=== PATIENT | female | born 1960 | race Caucasian/White ===

== ENCOUNTER 2017-01-14 16:30 | Observation (INO) ==
--- NOTE | 2017-01-14 17:31 | Emergency Department Note ---
Disposition Clinical Impression: Acute respiratory disease Cancer of breast Qualifiers: Breast location: unspecified site of breast Patient sex: female Laterality: right Qualified Code(s): C50.911 - Malignant neoplasm of unspecified site of right female breast Disposition: Admitted As Inpatient Condition: Good SOB HPI - General Chief Complaint: ED Shortness of Breath/Dyspnea Stated Complaint: AILZE Time Seen by Provider: 01/14/17 16:35 Source: patient, family Limitations: no limitations - History of Present Illness The patient presents with shortness of breath which she has had intermittently since being diagnosed with breast cancer and 2002 however it has significantly worsened in the last 8 days. I did review her previous record with a CTA of the chest 2 days ago which did not show pulmonary embolus. Patient has had 15 pounds of weight gain. I have reviewed the previous labs. The patient does have some chest pain which rotates in different areas around the anterior chest and radiates to the back. No pleuritic aspect. Does have an exertional component chest pain and shortness of breath. She denies any pain or swelling of the lower extremities. She also has a headache which began gradually earlier today and is generalized in both pressure and stabbing and she denies any numbness or weakness of the extremities, slurred speech, facial droop or confusion. Social history: Has never smoked, no alcohol or drugs For cancer she is getting both chemotherapy and surgery - Related Data Home Medications Medication Instructions Recorded Confirmed Duloxetine HCl [Cymbalta] 60 mg PO BID 09/18/16 01/14/17 Pantoprazole Sodium [Protonix] 40 mg PO DAILY 09/18/16 01/14/17 Aspirin Enteric Coated [Aspirin EC] 81 mg PO DAILY 01/14/17 01/14/17 Cetirizine HCl [Zyrtec] 10 mg PO DAILY 01/14/17 01/14/17 Cyclobenzaprine [Flexeril] 10 mg PO TID 01/14/17 01/14/17 Hydroxyzine HCl 25 mg PO Q8H PRN 01/14/17 01/14/17 Magnesium Oxide [Mag-Ox] 400 mg PO DAILY 01/14/17 01/14/17 Nortriptyline HCl 100 mg PO HS 01/14/17 01/14/17 Pregabalin [Lyrica] 200 mg PO TID 01/14/17 01/14/17 Rivaroxaban [Xarelto] 15 mg PO BID 01/14/17 01/14/17 Previous Rx's Medication Instructions Recorded Oxycodone HCl/Acetaminophen 1 each PO Q6H PRN #40 tablet 01/05/17 [Percocet 7.5-325 mg Tablet] Ferrous Sulfate 325 mg PO DAILY #30 tablet. 01/07/17 Folic Acid 1 mg PO DAILY #30 tablet 01/07/17 Allergies Allergy/AdvReac Type Severity Reaction Status Date / Time ibuprofen AdvReac See Verified 01/14/17 17:00 Comments Review of Systems: Constitutional: No fever Vision: No blurred vision ENT: + rhinorrhea Respiratory: + cough Allergic: + allergies/sneeze : No blood in urine GI: No blood in stool Hematologic: No bruising Dermatologic: No skin rash Musculoskeletal: No pain in the extremities Neuro: No numbness of the extremities Past Medical History - Past Medical History Medical history: Reports: cancer, DVT, hypertension, pulmonary embolus, renal disease Psychiatric history: Reports: anxiety, depression [employer] history: Reports: no [employer] history - Social History Smoking Status: Never smoker Smokeless Tobacco Status: No Alcohol use: Reports: none Drug use: Reports: none Physical Exam CONSTITUTIONAL: Alert and oriented X3, well-nourished, well appearing, is tachypneic in minimal to moderate respiratory distress HEAD: Normocephalic; atraumatic. EYES: PERRL, no scleral icterus. NOSE: The nose is normal in appearance without rhinorrhea RESP: Normal chest excursion with respiration; breath sounds with coarse breath sounds bilaterally but this is minimal. Breath sounds are symmetric. No wheezing CARD: Regular rhythm, without murmurs, rub or gallop ABD: Non-distended; non-tender, soft,without rigidity, rebound or guarding SKIN: Normal for age and race; warm and dry; no apparent lesions EXTREMITIES: Pulses are 2 plus and equal times 4 extremities, no peripheral edema or calf muscle pain. NEUROLOGICAL: Patient is alert and oriented times three. Cranial nerves III- XII are intact. Sensory and motor functions are intact. Strength is 5/5 for flexion and extension in all 4 extremities. Patellar DTRS are equal and intact. Finger to nose testing is equal and normal bilaterally. - General Limitations: no limitations General appearance: alert, in no apparent distress Course Vital Signs Temperature 98.0 F 01/14/17 17:00 Pulse Rate 98 01/14/17 17:00 Respiratory Rate 22 01/14/17 17:00 Blood Pressure 149/105 01/14/17 17:00 O2 Sat by Pulse Oximetry 100 01/14/17 17:00 Temperature 97.5 F L 01/14/17 21:14 Pulse Rate 85 01/14/17 21:14 Respiratory Rate 16 01/14/17 21:14 Blood Pressure 122/89 01/14/17 21:14 O2 Sat by Pulse Oximetry 96 01/14/17 21:14 Oxygen Delivery Oxygen Delivery Room Air Shortness of Breath/Dyspnea - MDM Narrative Medical decision making narrative: The patient does have symptoms concerning for possible heart failure perhaps from the chemotherapy and I did write for labs including BNP, troponin. She did have a scan 2 days ago and I will not do any further evaluation for pulmonary embolism. EKG showing sinus tachycardia with rate of 109 and there is evidence of lateral T-wave inversion and minimal ST depression in leads V5 and V6 laterally. Results of labs are pending [address] Young who accepts the patient for admission. I did review the patient's x-ray and labs without acute abnormality. BNP is not elevated. Patient does have objective tachypnea and there are multiple possible etiologies based on the fact that she is a cancer patient receiving chemotherapy including the possibility of lung injury from the chemotherapy medications, pulmonary fibrosis, pulmonary hypertension, and this can be further evaluated as an inpatient. I feel the risk of heart failure is low however consideration for diastolic dysfunction and the other possibility would be acute coronary syndrome which I feel is unlikely. Her headache does not suggest a subarachnoid hemorrhage, meningitis or mass and she does have a normal neurologic exam so a CT scan is not this time. 1845 - Medical Records Medical records reviewed: Yes I reviewed the patient's medical records. - Lab Data Lab results reviewed: Yes I reviewed the patient's lab results. Result diagrams: 01/14/17 18:20 01/14/17 17:32 Lab Results 01/14/17 01/14/17 01/14/17 Range/Units 17:32 17:32 17:32 WBC (4.3-11.1) K/mcL RBC (3.82-4.97) M/mcL Hgb (11.5-15.4) g/dL Hct (35.3-44.9) % MCV (83.0-100.0) fL MCH (28.0-33.3) pg MCHC (31.6-35.5) g/dL RDW (11.5-14.5) % Plt Count (140-400) K/mcL MPV (9.4-12.4) fL Sodium 137 (136-145) mEq/L Potassium 3.6 (3.5-4.5) mEq/L Chloride 105 (98-109) mEq/L Carbon Dioxide 20 (19-29) mEq/L BUN 22 H (7-20) mg/dL Creatinine 0.80 (0.57-1.11) mg/dL Est GFR ( Amer) > 60 (> 60) Est GFR (Non-Af Amer) > 60 (> 60) BUN/Creatinine Ratio 28 H (6-26) Glucose 82 (70-99) mg/dL Calculated Osmolality 286 (280-300) Calcium 10.2 (8.6-10.8) mg/dL Total Bilirubin 0.3 (0.2-1.2) mg/dL Direct Bilirubin 0.1 (0.0-0.5) mg/dL Indirect Bilirubin 0.2 (0.0-1.2) mg/dL AST 13 (5-34) Units/L ALT 13 (0-55) Units/L Alkaline Phosphatase 100 (38-126) Units/L Troponin I 0.01 (0-0.03) ng/mL B-Natriuretic Peptide 24 (0-100) pg/mL Serum Total Protein 8.1 (6.0-8.3) g/dL Albumin 3.7 (3.5-5.0) g/dL Globulin 4.4 H (2.4-3.5) g/dL Albumin/Globulin Ratio 0.8 L (1.1-2.2) 01/14/17 Range/Units 18:20 WBC 9.5 (4.3-11.1) K/mcL RBC 4.67 (3.82-4.97) M/mcL Hgb 13.8 (11.5-15.4) g/dL Hct 41.0 (35.3-44.9) % MCV 87.8 (83.0-100.0) fL MCH 29.6 (28.0-33.3) pg MCHC 33.7 (31.6-35.5) g/dL RDW 14.6 H (11.5-14.5) % Plt Count 272 (140-400) K/mcL MPV 9.0 L (9.4-12.4) fL Sodium (136-145) mEq/L Potassium (3.5-4.5) mEq/L Chloride (98-109) mEq/L Carbon Dioxide (19-29) mEq/L BUN (7-20) mg/dL Creatinine (0.57-1.11) mg/dL Est GFR ( Amer) (> 60) Est GFR (Non-Af Amer) (> 60) BUN/Creatinine Ratio (6-26) Glucose (70-99) mg/dL Calculated Osmolality (280-300) Calcium (8.6-10.8) mg/dL Total Bilirubin (0.2-1.2) mg/dL Direct Bilirubin (0.0-0.5) mg/dL Indirect Bilirubin (0.0-1.2) mg/dL AST (5-34) Units/L ALT (0-55) Units/L Alkaline Phosphatase (38-126) Units/L Troponin I (0-0.03) ng/mL B-Natriuretic Peptide (0-100) pg/mL Serum Total Protein (6.0-8.3) g/dL Albumin (3.5-5.0) g/dL Globulin (2.4-3.5) g/dL Albumin/Globulin Ratio (1.1-2.2) - Radiology Data Radiology results reviewed: Yes I reviewed the patient's radiology results.
[2017-01-14 17:52] LABS: Alanine Aminotransferase 13 Units/L (0-55); Albumin 3.7 g/dL (3.5-5.0); Albumin/Globulin Ratio 0.8 (1.1-2.2); Alkaline Phosphatase 100 Units/L (38-126); Aspartate Amino Transferase 13 Units/L (5-34); Bilirubin,Direct 0.1 mg/dL (0.0-0.5); Bilirubin,Indirect 0.2 mg/dL (0.0-1.2); Bilirubin,Total 0.3 mg/dL (0.2-1.2); Globulin 4.4 g/dL (2.4-3.5); Total Protein 8.1 g/dL (6.0-8.3)
[2017-01-14 18:25] LABS: BUN/Creatinine Ratio 28 (6-26); Blood Urea Nitrogen 22 mg/dL (7-20); Calcium 10.2 mg/dL (8.6-10.8); Carbon Dioxide 20 mEq/L (19-29); Chloride 105 mEq/L (98-109); Glucose 82 mg/dL (70-99); Osmolality,Calculated 286 (280-300); Potassium 3.6 mEq/L (3.5-4.5); Sodium 137 mEq/L (136-145); eGFR For African Americans > 60 (> 60); eGFR For Non-African Americans > 60 (> 60)
[2017-01-14 18:31] LABS: Hemoglobin 13.8 g/dL (11.5-15.4); Mean Corpuscular HGB Conc 33.7 g/dL (31.6-35.5); Mean Corpuscular Hemoglobin 29.6 pg (28.0-33.3); Mean Corpuscular Volume 87.8 fL (83.0-100.0); Platelet Count 272 K/mcL (140-400); Red Blood Count 4.67 M/mcL (3.82-4.97); Red Cell Distribution Width 14.6 % (11.5-14.5)
[2017-01-14] MEDS ORDERED: *HR* OxyCODONE/APAP 5/325 TABLET PO ONE (19:37)
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
[2017-01-14] MEDS ORDERED: Nitroglycerin 0.4 MG TAB.SUBL SL PRN (21:49)
[2017-01-14] MEDS ORDERED: Naloxone 0.4 MG/ML INJ IVP PRN (21:49)
[2017-01-14] MEDS: Aspirin 81 MG TAB.CHEW PO SCH (23:32)
[2017-01-14] MEDS: Pregabalin 50 MG CAPSULE PO SCH (23:33)
[2017-01-15] MEDS: *HR* OxyCODONE/APAP 7.5/325 TABLET PO PRN ×4 (00:41→22:30)
[2017-01-15] MEDS: Acetaminophen 325 MG TABLET PO PRN ×2 (04:10→13:14)
[2017-01-15 06:11] LABS: Basophils # 0.1 K/mcL (0.0-0.2); Basophils % 1.1 %; Eosinophils # 0.1 K/mcL (0.0-0.6); Eosinophils % 1.2 %; Hematocrit 38.6 % (35.3-44.9); Hemoglobin 12.5 g/dL (11.5-15.4); Immature Granulocytes % 0.6 % (0-4); Lymphocytes # 2.9 K/mcL (0.6-4.6); Mean Corpuscular HGB Conc 32.4 g/dL (31.6-35.5); Mean Corpuscular Hemoglobin 29.1 pg (28.0-33.3); Mean Corpuscular Volume 89.8 fL (83.0-100.0); Monocytes # 0.7 K/mcL (0.0-1.3); Neutrophils # 2.8 K/mcL (1.6-8.9); Platelet Count 233 K/mcL (140-400); Red Cell Distribution Width 14.6 % (11.5-14.5); Segmented Neutrophils % 43.1 %
[2017-01-15 06:34] LABS: Alanine Aminotransferase 12 Units/L (0-55); Albumin 3.3 g/dL (3.5-5.0); Albumin/Globulin Ratio 0.9 (1.1-2.2); Alkaline Phosphatase 75 Units/L (38-126); Aspartate Amino Transferase 14 Units/L (5-34); BUN/Creatinine Ratio 28 (6-26); Bilirubin,Total 0.5 mg/dL (0.2-1.2); Blood Urea Nitrogen 23 mg/dL (7-20); Carbon Dioxide 25 mEq/L (19-29); Chloride 105 mEq/L (98-109); Globulin 3.7 g/dL (2.4-3.5); Glucose 89 mg/dL (70-99); Magnesium 2.2 mg/dL (1.6-2.6); Osmolality,Calculated 287 (280-300); Potassium 3.6 mEq/L (3.5-4.5); Sodium 137 mEq/L (136-145); eGFR For African Americans > 60 (> 60); eGFR For Non-African Americans > 60 (> 60)
[2017-01-15] MEDS ORDERED: Perflutren Lipid Microsphere 1.3 ML in 0.9 % Sodium Chloride 8.7 ML IVP ONE (08:42)
[2017-01-15] MEDS ORDERED: *HR* Rivaroxaban 15 MG TABLET PO SCH (09:00)
[2017-01-15] MEDS: Aspirin 81 MG TAB.CHEW PO SCH (09:53)
[2017-01-15] MEDS: Pregabalin 50 MG CAPSULE PO SCH ×3 (09:53→20:43)
[2017-01-15] MEDS: Folic Acid 1 MG TABLET PO SCH (09:54)
[2017-01-15] MEDS: Magnesium Oxide 400 MG TABLET PO SCH (09:54)
[2017-01-15] MEDS: hydrOXYzine pamoate 25 MG CAPSULE PO PRN ×2 (09:54→18:45)
--- NOTE | 2017-01-15 10:11 | ECHO - Doppler Report ---
Limited Echo with Imaging Enhancement Agent Name: Mabel Beaulieu Date of Study: 01/15/2017 Date: 1960 Ht: 67.0 in Medical Record#: [id number] Age: 56 Wt: 199.0 lb Gender: Female BSA: 2.02 Order #: [id number] Location: [facility] Room #: 3B45 Reading Physician: Medical Geneticist: Jillian Hernandez Ordering Physician: Linda Crump CNP Primary Physician: Aparna Campo MD Indications: LVF assessment Impressions: Mild-moderate LV systolic dysfunction, LVEF 40%. There is global hypokinesis with regional variations. Normal right ventricular size and function. Valvular function was not assessed on this limited study. Left Ventricular Wall Motion: Rest Echo Findings The apex, apical inferior, mid inferior, basal inferior, apical anterior, mid anterior, basal anterior, apical septal, mid inferior septal, basal inferior septal, apical lateral, mid anterior lateral, basal anterior lateral, mid anterior septal, mid inferior lateral, basal anterior septal and basal inferior lateral cueva were hypokinetic. Findings: Study Quality * Suboptimal echo windows. Echo contrast was used. ECG Findings * Normal sinus rhythm. Left Ventricle * Mild-moderate LV systolic dysfunction, LVEF 40%. There is global hypokinesis with regional variations. * Normal LV chamber size and wall thickness. Right Ventricle * Normal right ventricular size and function. Left Atrium * Normal left atrial size. Right Atrium * Normal right atrial size. Aorta * Normally sized aortic root. Pericardium * There is no pericardial effusion present. History Family History of CAD Myocardial Infarction Congestive Heart Failure 11/27/16 a Previous Echo was performed. Contrast: Definity 1.3 ml in 8.7 ml of saline 3 ml. Measurements: BP: 92/ 65 2D Normal Values RVIDd: 2.40 cm IVSd: 1.00 cm 0.6 - 1.0 cm LVIDd: 4.70 cm 3.7 - 5.6 cm LVPWd: 1.10 cm 0.6 - 1.1 cm LVIDs: 3.60 cm 1.5 - 3.6 cm AO: 3.00 cm < 4.0 cm %FS: 23.40 cm >25 % Updated by Vicente Cloud MD, [facility] on 01/15/2017 10:06:15 AM electronically signed on 01/15/2017 10:06:41 AM with status of Final Wall Motion Herrera: 1=Normal, 2=Hypokinesis, 3=Akinesis, 4=Dyskinesis, 5=Aneurysmal, 6=Hyperkinetic, X=Not Visualized (Blank)=Missing
--- NOTE | 2017-01-15 11:01 | Internal Med Progress Note ---
Date of Encounter: 01/14/17 Time of Encounter: 10:20 - Assessment and plan (1) Exertional dyspnea Current Visit: Yes Status: Acute Assessment and plan: Likely secondary to worsening CHF 2D echo report noted Cardiology consult requested Will start low dose Lasix will start low dose Carvedilol and Lisinopril if her BP permits will monitor I/Os, daily weights O2 supplementation as needed fluid restriction diet (2) CHF (congestive heart failure) Current Visit: Yes Status: Chronic Assessment and plan: 2D echo in November 2016 which showed LVEF of 55% with pseudonormal LV diastolic dysunction and moderately dilated left atrium compared to the echo she received during this admission which showed LVEF of 40% with mild to moderate LV systolic dysfunction with global hypokinesis with regional variations. Plan as listed above Qualifiers: Congestive heart failure type: systolic Congestive heart failure chronicity : acute on chronic Qualified Code(s): I50.23 - Acute on chronic systolic ( congestive) heart failure (3) Chest pain Current Visit: Yes Status: Resolved Assessment and plan: Resolved at this time Qualifiers: Chest pain type: chest pain on breathing Qualified Code(s): R07.1 - Chest pain on breathing (4) History of breast cancer Current Visit: Yes Status: Chronic (5) Obesity Current Visit: Yes Status: Chronic Qualifiers: Obesity type: unspecified obesity type Obesity severity: unspecified obesity severity Qualified Code(s): E66.9 - Obesity, unspecified (6) Pulmonary embolism Current Visit: No Status: Chronic Assessment and plan: History of PE On anticoagulation with Xarelto as per primary oncologist due to history of PE and recently noted elevated D-dimer Qualifiers: Pulmonary embolism type: other Chronicity: chronic Acute cor pulmonale presence: without acute cor pulmonale Qualified Code(s): I27.82 - Chronic pulmonary embolism (7) DVT prophylaxis Current Visit: Yes Status: Acute Assessment and plan: Anticoagulated with Xarelto - Subjective Interval history: Pt seen and examined at bedside. Reports of feeling slightly better but continues to have exertional dyspnea that has progressively worsened over the last few weeks. Reports of having history of CHF and states she takes lasix intermittently whenever she notices worsening of lower extremity edema. Denies any chest pain at this time. Denies any SOB at rest. Patient had a 2D echo in November 2016 which showed LVEF of 55% with pseudonormal LV diastolic dysunction and moderately dilated left atrium compared to the echo she received during this admission which showed LVEF of 40 % with mild to moderate LV systolic dysfunction with global hypokinesis with regional variations. - Constitutional Vitals: Temp Pulse Resp BP Pulse Ox 98.1 F 82 16 104/69 97 01/15/17 08:05 01/15/17 08:05 01/15/17 08:05 01/15/17 08:05 01/15/17 08:05 General appearance: Present: cooperative, A&O X 3, pleasant, no acute distress, obese - Head Head exam: Present: atraumatic, normocephalic - Eye Eye exam: Present: normal appearance, conjuntiva pink, sclera anicteric - Respiratory Respiratory exam: Absent: respiratory distress, wheezes Additional comments: mild bibasilar crackles - Cardiovascular Cardiovascular exam: Present: RRR, +S1, +S2. Absent: diastolic murmur, gallop, rubs, systolic murmur - GI/Abdominal GI/Abdominal exam: Present: normal bowel sounds, soft, no peritoneal signs. Absent: distended, tenderness - Extremities Exam Extremities exam: Present: warm, radial pulses palpable and symetrical. Absent : calf tenderness, cyanotic, pedal edema - Neurological Exam Neurological exam: Present: alert, oriented X3. Absent: pronater drift, facial droop, speech deficit - Psychiatric Psychiatric exam: Present: normal affect, normal mood Internal Medicine: Result - Labs CBC & Chem 7: 01/15/17 05:25 01/15/17 05:25 Labs: Short CBC 01/15/17 Range/Units 05:25 WBC 6.5 (4.3-11.1) K/mcL Hgb 12.5 (11.5-15.4) g/dL Hct 38.6 (35.3-44.9) % Plt Count 233 (140-400) K/mcL Neutrophils # 2.8 (1.6-8.9) K/mcL BMP 01/15/17 05:25 Sodium 137 Potassium 3.6 Chloride 105 Carbon Dioxide 25 BUN 23 H Creatinine 0.81 Glucose 89 Calcium 9.0 Cardiac Enzymes 01/14/17 01/15/17 Range/Units 22:46 05:25 Troponin I 0.00 0.00 (0-0.03) ng/mL Liver Function 01/15/17 Range/Units 05:25 Total Bilirubin 0.5 (0.2-1.2) mg/dL AST 14 (5-34) Units/L ALT 12 (0-55) Units/L Alkaline Phosphatase 75 (38-126) Units/L Albumin 3.3 L (3.5-5.0) g/dL Consult Discharge Plan - Plan Referrals: Aparna Campo MD [Primary Care Provider] -
[2017-01-15] MEDS: Furosemide 20 MG TABLET PO SCH (11:13)
--- NOTE | 2017-01-15 11:53 | Electrocardiograph Report ---
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
[2017-01-15] MEDS: Loratadine 10 MG TABLET PO SCH (12:24)
[2017-01-15] MEDS: Metoprolol XL (24 HR) Succ 25 MG TAB.ER.24H PO SCH (13:14)
[2017-01-15] MEDS ORDERED: *HR* LORazepam 2 MG/ML VIAL IVP STA (22:45)
[2017-01-16] MEDS ORDERED: Water for inj. (sterile) 10 ML IV ONE ×2 (00:02→22:02)
[2017-01-16 04:22] LABS: Basophils # 0.1 K/mcL (0.0-0.2); Basophils % 0.6 %; Eosinophils # 0.2 K/mcL (0.0-0.6); Hematocrit 39.4 % (35.3-44.9); Hemoglobin 12.8 g/dL (11.5-15.4); Immature Granulocytes % 0.5 % (0-4); Lymphocytes # 3.1 K/mcL (0.6-4.6); Lymphocytes % 39.4 %; Mean Corpuscular HGB Conc 32.5 g/dL (31.6-35.5); Mean Corpuscular Hemoglobin 29.4 pg (28.0-33.3); Mean Corpuscular Volume 90.6 fL (83.0-100.0); Monocytes # 0.8 K/mcL (0.0-1.3); Monocytes % 10.6 %; Neutrophils # 3.7 K/mcL (1.6-8.9); Platelet Count 251 K/mcL (140-400); Red Blood Count 4.35 M/mcL (3.82-4.97); Red Cell Distribution Width 14.3 % (11.5-14.5); Segmented Neutrophils % 46.9 %
[2017-01-16 04:44] LABS: BUN/Creatinine Ratio 26 (6-26); Blood Urea Nitrogen 23 mg/dL (7-20); Calcium 9.4 mg/dL (8.6-10.8); Carbon Dioxide 21 mEq/L (19-29); Chloride 105 mEq/L (98-109); Glucose 104 mg/dL (70-99); Osmolality,Calculated 290 (280-300); Phosphorous 5.1 mg/dL (2.3-4.7); Sodium 138 mEq/L (136-145); eGFR For African Americans > 60 (> 60); eGFR For Non-African Americans > 60 (> 60)
[2017-01-16 05:17] LABS: Magnesium 2.4 mg/dL (1.6-2.6)
[2017-01-16 05:18] LABS: Potassium 4.1 mEq/L (3.5-4.5)
[2017-01-16] MEDS ORDERED: *HR* LORazepam 2 MG/ML VIAL IVP PRN (06:00)
[2017-01-16] MEDS: *HR* OxyCODONE/APAP 7.5/325 TABLET PO PRN ×3 (08:18→22:09)
[2017-01-16] MEDS: Pregabalin 50 MG CAPSULE PO SCH ×3 (08:18→20:31)
[2017-01-16] MEDS: Loratadine 10 MG TABLET PO SCH (08:19)
[2017-01-16] MEDS: Furosemide 20 MG TABLET PO SCH (08:19)
[2017-01-16] MEDS: Aspirin 81 MG TAB.CHEW PO SCH (08:19)
[2017-01-16] MEDS: Folic Acid 1 MG TABLET PO SCH (08:19)
[2017-01-16] MEDS: Metoprolol XL (24 HR) Succ 25 MG TAB.ER.24H PO SCH (08:19)
[2017-01-16] MEDS: Magnesium Oxide 400 MG TABLET PO SCH (08:19)
--- NOTE | 2017-01-16 09:10 | Event Note ---
Date of Encounter: 01/16/17 Time of Encounter: 09:15 - Cardiology Event Note Laboratory Tests 01/14/17 01/14/17 01/15/17 17:32 22:46 05:25 Creatinine Est GFR (Non-Af Amer) Troponin I 0.01 0.00 0.00 01/16/17 03:51 Creatinine 0.87 Est GFR (Non-Af Amer) > 60 Troponin I Denies any concerns overnight. No CP, SOB, Palps. at bedside. All questions answered. LHC this afternoon. Further recs after [facility].
[2017-01-16] MEDS: Acetaminophen 325 MG TABLET PO PRN (11:02)
[2017-01-16] MEDS ORDERED: Nitroglycerin 1,000 MCG/10 ML VIAL IV ONE (11:29)
[2017-01-16] MEDS ORDERED: Heparin 1,000 UNITS/500 mL NS 500 ML ONE (11:29)
[2017-01-16] MEDS ORDERED: Verapamil 5 MG/2 ML VIAL ONE (11:29)
[2017-01-16] MEDS ORDERED: *HR* Heparin 10,000 UNIT/10 ML VIAL ONE (11:29)
[2017-01-16] MEDS ORDERED: 0.9 % Sodium Chloride 1,000 ML ONE ×2 (11:30→14:11)
--- NOTE | 2017-01-16 11:47 | Pre-Sedation Evaluation ---
Pre-sedation evaluation - Pre-sedation checklist Date of procedure: 01/16/17 Procedure: [facility] Recent Vitals: Last Vital Signs Temp 97.4 F L 01/16/17 07:07 Pulse 83 01/16/17 07:07 Resp 16 01/16/17 07:07 BP 111/76 01/16/17 07:07 Pulse Ox 94 01/16/17 07:07 H&P (including ROS) documented in medical record: Yes Previous reaction to sedatives/anesthetics: No Dietary Status: NPO after Midnight Dentition: No loose teeth or bridges ASA Classification *see protocol: CLASS II-Mild systemic disease Plan of Care: Pt appropriate candidate for procedure/moderate/conscious sedation , Risks/benefits of procedure/sedation discussed w/ patient/family
--- NOTE | 2017-01-16 12:15 | Internal Med Progress Note ---
Date of Encounter: 01/16/17 Time of Encounter: 12:12 - Assessment and plan (1) Exertional dyspnea Current Visit: Yes Status: Acute Assessment and plan: Likely secondary to worsening CHF 2D echo report noted Cardiology consultation appreciated Scheduled for [facility] today (01/16/17) Tolerating Lasix and BB well, will continue To be started on SHREYAS-inh after [facility] will monitor I/Os, daily weights O2 supplementation as needed fluid restriction diet (2) CHF (congestive heart failure) Current Visit: Yes Status: Chronic Assessment and plan: 2D echo in November 2016 which showed LVEF of 55% with pseudonormal LV diastolic dysunction and moderately dilated left atrium compared to the echo she received during this admission which showed LVEF of 40% with mild to moderate LV systolic dysfunction with global hypokinesis with regional variations. Plan as listed above Qualifiers: Congestive heart failure type: systolic Congestive heart failure chronicity : acute on chronic Qualified Code(s): I50.23 - Acute on chronic systolic ( congestive) heart failure (3) Chest pain Current Visit: Yes Status: Resolved Assessment and plan: Resolved at this time Qualifiers: Chest pain type: chest pain on breathing Qualified Code(s): R07.1 - Chest pain on breathing (4) History of breast cancer Current Visit: Yes Status: Chronic (5) Obesity Current Visit: Yes Status: Chronic Qualifiers: Obesity type: unspecified obesity type Obesity severity: unspecified obesity severity Qualified Code(s): E66.9 - Obesity, unspecified (6) Pulmonary embolism Current Visit: No Status: Chronic Assessment and plan: History of PE On anticoagulation with Xarelto as per primary oncologist due to history of PE and recently noted elevated D-dimer Will resume Xarelto after C Qualifiers: Pulmonary embolism type: other Chronicity: chronic Acute cor pulmonale presence: without acute cor pulmonale Qualified Code(s): I27.82 - Chronic pulmonary embolism (7) DVT prophylaxis Current Visit: Yes Status: Acute Assessment and plan: Anticoagulated with Xarelto (8) Anxiety Current Visit: Yes Status: Chronic Assessment and plan: Reports of severe anxiety that is not controlled with her home medication of Hydroxyzine Will continue Ativan 1mg IV prn anxiety - Subjective Interval history: Pt seen and examined with family present at bedside. Reports of being scheduled for [facility] today and states she has history of severe anxiety that is not relieved by Hydroxyzine. Overnight she received Ativan 1mg IV which provided her with adequate relief. She reports of having improvement in her breathing and has had increased urinary output after initiation of Lasix. NO chest pain or sob at this time. - Constitutional Vitals: Temp Pulse Resp BP Pulse Ox 97.4 F L 83 16 111/76 94 01/16/17 07:07 01/16/17 07:07 01/16/17 07:07 01/16/17 07:07 01/16/17 07:07 General appearance: Present: cooperative, A&O X 3, pleasant, no acute distress, obese - Head Head exam: Present: atraumatic, normocephalic - Eye Eye exam: Present: normal appearance, PERRL, conjuntiva pink, sclera anicteric - Respiratory Respiratory exam: Present: CTAB. Absent: accessory muscle use, rales, rhonchi, wheezes - Cardiovascular Cardiovascular exam: Present: RRR, +S1, +S2. Absent: diastolic murmur, gallop, rubs, systolic murmur - GI/Abdominal GI/Abdominal exam: Present: normal bowel sounds, soft, no peritoneal signs. Absent: distended, tenderness - Extremities Exam Extremities exam: Present: warm, radial pulses palpable and symetrical. Absent : calf tenderness, cyanotic, pedal edema - Neurological Exam Neurological exam: Present: alert, oriented X3 - Psychiatric Psychiatric exam: Present: anxious Internal Medicine: Result - Labs CBC & Chem 7: 01/16/17 03:51 01/16/17 03:51 Labs: Short CBC 01/16/17 Range/Units 03:51 WBC 7.9 (4.3-11.1) K/mcL Hgb 12.8 (11.5-15.4) g/dL Hct 39.4 (35.3-44.9) % Plt Count 251 (140-400) K/mcL Neutrophils # 3.7 (1.6-8.9) K/mcL BMP 01/16/17 03:51 Sodium 138 Potassium 4.1 Chloride 105 Carbon Dioxide 21 BUN 23 H Creatinine 0.87 Glucose 104 H Calcium 9.4 Consult Discharge Plan - Plan Referrals: Aparna Campo MD [Primary Care Provider] -
[2017-01-16] MEDS ORDERED: *HR* FentaNYL (PF) 250 MCG/5 ML VIAL ONE (14:04)
[2017-01-16] MEDS ORDERED: *HR* Midazolam HCl 5 MG/5 ML VIAL IVP ONE (14:04)
--- NOTE | 2017-01-16 14:53 | Event Note ---
Date of Encounter: 01/16/17 Time of Encounter: 14:50 - Cardiology Event Note Per discussion with Dr. Montano, left heart catheterization with no significant lesions requiring intervention. Results discussed with patient. Cardiology will signoff, re-consult as needed, and follow-up scheduled as outpatient. Patient verbalized understanding and agreed with plan.
--- NOTE | 2017-01-16 14:55 | Invasive Diagnostic Lab Proc ---
Name: Mabel Beaulieu Date of Study: 01/16/2017 Date: 1960 Ht: 66.9in Medical Record#: [id number] Age: 56 Wt: 198.42lb Gender: Female BSA: 2.01 Order #: [id number] BMI: 31.14 Physicians Procedure Physician: Pedro Montano MD, [facility] Referring MD: Referring MD: Staff Name Position Time In Jneny Connolly RT (R) Monitor 02:23 PM Gianna Chase RT (R) Scrub 02:23 PM Kwesi Johnson RN Python Web Developer 02:23 PM Indications Indication Unstable Angina Coronary Artery Disease Procedures Performed Procedure L HRT ARTERY/VENTRICLE ANGIO Pre-Procedure Checklist Informed consent is complete signed and on chart. H\\T\\P is on chart. ID band is on and ID verified with patient. Patient NPO for procedure The procedure was described for the patient and questions were answered. Blood Pressure: 103/68 ECG is on chart. Rhythm: NSR Plan of Care Patient will tolerate the procedure without complications. Adequate level of comfort will be maintained. Hemodynamics will remain stable Patient will recover from procedure without complications. Respiratory function will be maintained. Cardiac rhythm will remain stable. Patient temperature will be maintained. Patient and/or family have verbalized understanding of the procedure. Patient Education Chief Complaint/Reason for Test: Cardiac Cath Developmental Category: Adult (18-64 years) Developmentally Appropriate for Age: Yes Learning Barriers: None Education Needs: Procedure Education Method: Verbal Information Taught: Cardiac Cath Educational Evaluation: Able to repeat information Intravenous Access Time IV Size Location DC'd Fluid/Drip Rate Units RN 02:09 PM 20g 1 /" Patent On Arrival Lt upper chest 0.9NaCl 25 ml/hr Kwesi Johnson RN Allergies ibuprofen Vital Signs Time BP (mmHg) HR (bpm) O2 Sat. RR (bpm) LOC 02:09 PM 103 / 68 90 94 % 16 5 = Fully awake and oriented or at pre-proc level 02:24 PM / % 4 = Oriented but drowsy 02:24 PM / % 4 = Oriented but drowsy 02:30 PM 121 / 68 69 100 % 12 02:35 PM 114 / 72 77 100 % 17 02:40 PM 127 / 67 78 100 % 12 02:20 PM 138 / 86 76 98 % 21 02:25 PM 131 / 75 74 100 % 12 Procedural Medications Time Medication Dose Units Method Given By 02:23 PM Oxygen 2 L/min nasal cannula Kwesi Johnson RN 02:23 PM Versed 2 mg Intravenous Kwesi Johnson RN 02:24 PM Fentanyl 50 mcg Intravenous Kwesi Johnson RN 02:30 PM Lidocaine 2% 14 ml Subcutaneous Pedro Montano MD, [facility] ASA Classification: CLASS II- Mild systemic disease (i.e. well-controlled diabetes, hypertension, asthma, cigarette smoking) Kvng Score Preprocedure Postprocedure Activity 2- Moves 4 extremities sustained head lift Activity 2- Moves 4 extremities sustained head lift Circulation 2- SBP +/= 20 points of pre-anesthetic level Circulation 2- SBP +/= 20 points of pre-anesthetic level Consciousness 2- Awake and alert oriented x 3 Consciousness 2- Awake and alert oriented x 3 O2 Saturation 2- Able to maintain O2 satruation of 92% on room air O2 Saturation 2- Able to maintain O2 satruation of 92% on room air Respiratory 2- Able to deep breathe and cough well Respiratory 2- Able to deep breathe and cough well Total Score 10 Total Score 10 Contrast Agent: Isovue Diagnostic Contrast: 77 ml Total Contrast: 77 ml Fluoro Dose: 206 mGy Procedure Log Time Note Enter By 02:10 PM CathStat 02:19 PM Vitals capture started with the following parameters, Patient=Adult, Interval=5 min, Initial Wiyurqin=177 mmHg, Deflation Rate=5 mmHg, Cuff placed on Left Arm 02:19 PM Case Start 02:20 PM HR=76 bpm, ZNHE=042/86 mmhg, SpO2=98.0 %, Resp=21 B/min, Comment=NSR 02:21 PM Recorded ECG: HR=76 Condition=Condition 1 02:23 PM Pt arrived to blood bank laboratory technician 2 at 14:23 [email or web address] 02:23 PM Jenny Connolly RT (R) Position: Monitor Time in: 14:23 [email or web address] 02:23 PM Gianna Chase RT (R) Position: Scrub Time in: 14:23 [email or web address] 02:23 PM Kwesi Johnson RN Position: Python Web Developer Time in: 14:23 [email or web address] 02:23 PM Patient charges- Angio tray pack, Navilyst 3mm J, Pulse Oximetry and ACIST tubing and transducer [email or web address] 02:23 PM Case Delayed No [email or web address] 02:23 PM Physician arrived 14:23 y3 02:23 PM Meet and diaz completed [email or web address] 02:23 PM Sign in performed according to hospital policy. [email or web address] 02:23 PM Procedure start 14:23 [email or web address] 02:23 PM Time: 14:23 Oxygen on at 2 L/min per nasal cannula by Kwesi Johnson RN [email or web address] 02:24 PM Time: 14:23 Versed 2 mg Intravenous Given by Kwesi Johnson RN [email or web address] 02:24 PM Time: 14:24 Fentanyl 50 mcg Intravenous Given by Kwsei Johnson RN [email or web address] 02:24 PM Time: 14:24 Patient comfortable and pain free: Yes [email or web address] 02:24 PM Time: 14:24LOC: 4 = Oriented but drowsy [email or web address] 02:25 PM HR=74 bpm, FHVO=208/75 mmhg, ZyP7=548.0 %, Resp=12 B/min, Comment=NSR 02:25 PM Pressure channel 1 zeroed. 02:28 PM Time out performed according to hospital policy [email or web address] 02:30 PM Time: 14:30 14 ml Lidocaine 2% to right groin Subcutaneous [email or web address] PM HR=69 bpm, ISSX=091/68 mmhg, QbM9=578.0 %, Resp=12 B/min, Comment=NSR 02:31 PM Access obtained by percutaneous puncture. 5Fr 10cm Terumo [place] sheath placed in right Femoral artery. [id number] [email or web address] 02:31 PM 0.035 145cm Navilyst 3mmJ wire [id number] [email or web address] 02:31 PM 5Fr FL 4 catheter inserted over the wire [facility] [email or web address] 02:32 PM LCA angiography performed in multiple views. [email or web address] 02:33 PM Recorded Pressure: Ao, HR=75, Condition=Condition 1 (Aorta) Ao 105/77/91 02:35 PM Catheter removed [facility] 02:35 PM 5Fr FR 4 catheter inserted over the wire [facility] [email or web address] 02:35 PM RCA angiography performed in multiple views. [email or web address] 02:35 PM HR=77 bpm, FWHI=116/72 mmhg, XvT1=801.0 %, Resp=17 B/min, Comment=NSR 02:36 PM Recorded Pressure: Ao, HR=74, Condition=Condition 1 (Aorta) Ao 109/83/96 02:36 PM Catheter removed [email or web address] 02:36 PM 5Fr Pigtail catheter inserted over the wire [facility] [email or web address] 02:36 PM Catheter selectively placed in left ventricle [email or web address] 02:37 PM Bolus angiogram of left Ventricle complete: 10 ml/sec for a total of 30 mls [email or web address] 02:37 PM Lesion found in Proximal RCA. Pre Stenosis: 15 Pre IAN Flow: [email or web address] 02:37 PM Lesion found in Mid RCA. Pre Stenosis: 15 Pre IAN Flow: [email or web address] 02:37 PM Recorded Pressure: LV, HR=76, Condition=Condition 1 (Left Ventricle) LV 111/6/25 02:38 PM Recorded Pressure: LV, HR=76, Condition=Condition 1 (Left Ventricle) LV 118/5/18 02:39 PM Time: 14:24LOC: 4 = Oriented but drowsy [email or web address] 02:39 PM Time: 14:24 Patient comfortable and pain free: Yes [email or web address] 02:39 PM Recorded Pressure: LV, Ao, HR=78, Condition=Condition 1 (Left Ventricle) LV 114/22/45, (Aorta) Ao 135/75/95 02:40 PM Catheter removed [email or web address] 02:40 PM Bolus angiogram of right Femoral complete: 4 ml/sec for a total of 7 mls [email or web address] 02:40 PM HR=78 bpm, BYFX=680/67 mmhg, YqU0=770.0 %, Resp=12 B/min, Comment=NSR 02:41 PM Procedure completed at 14:41 [email or web address] 02:42 PM Sign out completed: Radiation Dose 206.39 mGy Fluoro Time: 1.0 Isovue 370 - 200ml contrast 77 ml given by Pedro Montano MD, [facility]. Complications: NoneCardiac Rehab Consult needed: NoConfirmed administered medications: Yes [email or web address] 02:42 PM Isovue 370 - 200ml,1 Bottle(s) used. [email or web address] 02:42 PM Arterial sheath pulled, Mynx closure device used and was Successful S/N. [email or web address] 02:42 PM Post Blood Pressure 127/67 [email or web address] 02:42 PM Information taught Cardiac Cath and Mynx [email or web address] 02:42 PM Education needs Procedure, Plan of Care, and Disease Process [email or web address] 02:42 PM Learning barriers :None [email or web address] 02:42 PM Education Methods Verbal [email or web address] 02:42 PM Education evaluation Able to repeat information [email or web address] 02:42 PM Delay to floor No [email or web address] 02:42 PM Family placed in consult room. [email or web address] 02:43 PM Complications: None [email or web address] 02:43 PM Fluoro Time: 1 [email or web address] 02:43 PM Isovue 370 - 200ml contrast 77 ml given by Pedro Montano MD, [facility]. [email or web address] 02:43 PM Site status No bleeding/hematoma - Rt Groin as reported by Sites, Gianna RT (R) at 14:43 [email or web address] 02:43 PM Opsite applied [email or web address] 02:47 PM Report given to Zuri BOLAND Pt taken to Room #45. 14:47 [email or web address] 02:48 PM Patient out of room: 14:48 [email or web address] Complications Complication None None Hemodynamics Pressures Site Systolic/A Wave Diastolic/V Wave Mean AO 105 77 91 AO 109 83 96 LV 111 6 25 LV 118 5 18 LV 114 22 45 AO 135 75 95 Post Procedure Information Blood Pressure: 127/67 mmHg Post procedural instructions were given Closure Device Time Device Success/Fail 01/16/2017 2:43:00 PM MynxGrip Successful Site Checks Time Location Status Staff Sheath In? Note 02:43 PM Rt Groin No bleeding/hematoma Sites, Gianna RT (R) Pulses Time Site Pre-Procedure Post-Procedure Note Bilateral DP \\T\\ PT 2+ 2+ Bilateral radial 2+ 2+ Updated by Jenny Connolly, RT(R) on 01/16/2017 2:48:13 PM electronically signed on 01/16/2017 2:49:04 PM with status of Final
[2017-01-17] MEDS: hydrOXYzine pamoate 25 MG CAPSULE PO PRN (00:10)
[2017-01-17] MEDS: *HR* OxyCODONE/APAP 7.5/325 TABLET PO PRN (05:19)
[2017-01-17 05:31] LABS: Basophils # 0.1 K/mcL (0.0-0.2); Basophils % 0.6 %; Eosinophils # 0.2 K/mcL (0.0-0.6); Hematocrit 36.4 % (35.3-44.9); Hemoglobin 11.8 g/dL (11.5-15.4); Immature Granulocytes % 0.5 % (0-4); Lymphocytes # 2.3 K/mcL (0.6-4.6); Lymphocytes % 28.3 %; Mean Corpuscular HGB Conc 32.4 g/dL (31.6-35.5); Mean Corpuscular Hemoglobin 29.4 pg (28.0-33.3); Mean Corpuscular Volume 90.8 fL (83.0-100.0); Mean Platelet Volume 9.1 fL (9.4-12.4); Monocytes # 0.8 K/mcL (0.0-1.3); Monocytes % 10.1 %; Neutrophils # 4.7 K/mcL (1.6-8.9); Platelet Count 230 K/mcL (140-400); Red Blood Count 4.01 M/mcL (3.82-4.97); Red Cell Distribution Width 14.5 % (11.5-14.5); Segmented Neutrophils % 58.5 %
[2017-01-17 05:33] LABS: BUN/Creatinine Ratio 29 (6-26); Blood Urea Nitrogen 24 mg/dL (7-20); Calcium 8.9 mg/dL (8.6-10.8); Carbon Dioxide 24 mEq/L (19-29); Chloride 106 mEq/L (98-109); Glucose 112 mg/dL (70-99); Magnesium 2.3 mg/dL (1.6-2.6); Osmolality,Calculated 295 (280-300); Phosphorous 4.2 mg/dL (2.3-4.7); Potassium 3.6 mEq/L (3.5-4.5); Sodium 140 mEq/L (136-145); eGFR For African Americans > 60 (> 60); eGFR For Non-African Americans > 60 (> 60)
[2017-01-17 06:47] VITALS: BP 104/71
[2017-01-17] MEDS: Pregabalin 50 MG CAPSULE PO SCH (08:08)
[2017-01-17] MEDS: Magnesium Oxide 400 MG TABLET PO SCH (08:08)
[2017-01-17] MEDS: Loratadine 10 MG TABLET PO SCH (08:09)
[2017-01-17] MEDS: Furosemide 20 MG TABLET PO SCH (08:09)
[2017-01-17] MEDS: Folic Acid 1 MG TABLET PO SCH (08:09)
[2017-01-17] MEDS: Aspirin 81 MG TAB.CHEW PO SCH (08:09)
[2017-01-17] MEDS: Metoprolol XL (24 HR) Succ 25 MG TAB.ER.24H PO SCH (08:09)
--- NOTE | 2017-01-17 08:27 | Discharge Summary ---
Date of Encounter: 01/17/17 Time of Encounter: 08:25 - Discharge Diagnosis (1) Exertional dyspnea Priority: Primary Status: Acute (2) CHF (congestive heart failure) Priority: Primary Status: Chronic Qualifiers: Congestive heart failure type: systolic Congestive heart failure chronicity : acute on chronic Qualified Code(s): I50.23 - Acute on chronic systolic ( congestive) heart failure (3) Chest pain Priority: Primary Status: Resolved Qualifiers: Chest pain type: chest pain on breathing Qualified Code(s): R07.1 - Chest pain on breathing (4) History of breast cancer Priority: Secondary Status: Chronic (5) Obesity Priority: Secondary Status: Chronic Qualifiers: Obesity type: unspecified obesity type Obesity severity: unspecified obesity severity Qualified Code(s): E66.9 - Obesity, unspecified (6) Pulmonary embolism Priority: Secondary Status: Chronic Qualifiers: Pulmonary embolism type: other Chronicity: chronic Acute cor pulmonale presence: without acute cor pulmonale Qualified Code(s): I27.82 - Chronic pulmonary embolism (7) DVT prophylaxis Priority: Secondary Status: Acute (8) Anxiety Priority: Secondary Status: Chronic - Discharge Medications Prescriptions: Furosemide [Lasix] 20 mg PO DAILY #30 tablet Metoprolol XL (24 HR) Succ [Toprol Xl] 12.5 mg PO DAILY #30 tab.er.24h Oxycodone HCl/Acetaminophen [Percocet 7.5-325 mg Tablet] 1 each PO Q6H PRN #20 tablet PRN Reason: Pain Home Medications: Duloxetine HCl [Cymbalta] 60 mg PO BID 09/18/16 [History] Pantoprazole Sodium [Protonix] 40 mg PO DAILY 09/18/16 [History] Ferrous Sulfate 325 mg PO DAILY #30 tablet. 01/07/17 [Rx] Folic Acid 1 mg PO DAILY #30 tablet 01/07/17 [Rx] Aspirin Enteric Coated [Aspirin EC] 81 mg PO DAILY 01/14/17 [History] Cetirizine HCl [Zyrtec] 10 mg PO DAILY 01/14/17 [History] Cyclobenzaprine [Flexeril] 10 mg PO TID 01/14/17 [History] Hydroxyzine HCl 25 mg PO Q8H PRN 01/14/17 [History] Magnesium Oxide [Mag-Ox] 400 mg PO DAILY 01/14/17 [History] Nortriptyline HCl 100 mg PO HS 01/14/17 [History] Pregabalin [Lyrica] 200 mg PO TID 01/14/17 [History] Rivaroxaban [Xarelto] 15 mg PO BID 01/14/17 [History] Furosemide [Lasix] 20 mg PO DAILY #30 tablet 01/17/17 [Rx] Metoprolol XL (24 HR) Succ [Toprol Xl] 12.5 mg PO DAILY #30 tab.er.24h 01/17/17 [Rx] Oxycodone HCl/Acetaminophen [Percocet 7.5-325 mg Tablet] 1 each PO Q6H PRN #20 tablet 01/17/17 [Rx] Allergies/Adverse Reactions: Allergies ibuprofen Adverse Reaction (Verified 01/14/17 17:00) See Comments Procedures/tests Complete & Pending: Procedures Performed prior 72 hours Category Date Time Status CL Cardiac Catheterization [CL] Routine Diamond Setter Apprentice 01/16/17 08:00 Ordered ECG 12 lead ECG [ECG] Routine Y 01/14/17 21:49 Ordered EV limited echo w enhance Routine Y 01/15/17 21:49 Completed Date of admission: 01/14/17 19:55 Primary care physician: Aparna Campo Consults: 01/15/17 10:16 Consult to Cardiology [CONS] Routine Comment: Consulting Provider: Cardiology Amber Reason for Consult: CHF decompensation with worsening LVEF Call Completed: Yes Discharging clinician: Kimberly Rockwell Anticipated date of discharge: 01/17/17 - Patient Status Disposition: Home, Self-Care Condition: Good Functional capacity at discharge: independent ambulation Overall status at discharge: patient is back to baseline - Discharge Instructions Follow Up With: Aparna Campo MD [Primary Care Provider] - Additional Instructions: Please follow up with your primary care physician within five days after your discharge from the hospital. Please follow up with your record center specialist within one week after your discharge from the hospital. Metoprolol, Lasix have been added to your home medication list. please take these medications as prescribed. Please closely monitor your BP at home, hold your BP medications if your BP is below 120/80 and consult your primary care physician. Hold Metoprolol dose if your HR<60. You will benefit from Lisinopril therapy, however given your borderline low BP, this medication has not been added to your home medications. Please ask your record center specialist and PCP about adding this medication once your BP is able to tolerate it. Please resume all your other home medications as prescribed by your primary care physician. - Diet and Activity Activity: resume usual activities as tolerated Diet: low salt diet Hospital course: Ms. Beaulieu is a 56 year old female with PMH Of CAD, CHF, GERD, anxiety, depression , chronic back pain, history of breast ca s/p chemo/radiation, DVT/PE who was admitted for management of worsening shortness of breath and chest pain. Upon further evaluation patient was found to have acute on chronic worsening of her LVEF and underwent LHC. Patient was evaluated by cardiology and was recommended to start Lasix, BB, and SHREYAS-inh. Patient was started on lasix and BB however given labile BP, SHREYAS-in was not started. Patient's LHC was unremarkable and no further intervention was recommended. At this time, patient is hemodynamically stable with complete resolution of her presenting symptoms. She will be discharged to home with follow up with PCP and cardiology. Patient demonstrates understanding of her diagnosis and agrees with the discharge care and plan. - Time Spent with Patient Total time spent providing and/or coordinating discharge services: Less than 30 minutes - Constitutional Vitals: Temp Pulse Resp BP Pulse Ox 97.5 F L 82 15 104/71 97 01/17/17 06:46 01/17/17 06:46 01/17/17 06:46 01/17/17 06:46 01/17/17 06:46 General appearance: Present: cooperative, A&O X 3, pleasant, no acute distress, obese - Head Head exam: Present: atraumatic, normocephalic - Eye Eye exam: Present: normal appearance, conjuntiva pink, sclera anicteric - Respiratory Respiratory exam: Present: CTAB. Absent: accessory muscle use, rales, rhonchi, wheezes - Cardiovascular Cardiovascular exam: Present: RRR, +S1, +S2. Absent: diastolic murmur, gallop, rubs, systolic murmur - GI/Abdominal GI/Abdominal exam: Present: normal bowel sounds, soft, no peritoneal signs. Absent: distended, tenderness - Extremities Exam Extremities exam: Present: warm, radial pulses palpable and symetrical. Absent : calf tenderness, cyanotic, pedal edema - Neurological Exam Neurological exam: Present: alert, oriented X3 - Psychiatric Psychiatric exam: Present: normal affect, normal mood
--- NOTE | 2017-01-17 10:45 | Invasive Diagnostic Lab ---
Name: Mabel Beaulieu Date of Study: 01/16/2017 Date: 1960 Ht: 170.0 cm /66.9 in Medical Record#: [id number] Age: 56 Wt: 90. kg / 198.42 lb Account/Order#: [id number] Gender: Female BSA: 2.01 Order #: [id number] Fluoro Dose: 206 mGy BMI: 31.14 Procedure Physician: Pedro Montano MD, [facility] Referring MD: Referring MD: Procedures Performed: LEFT HEART CATH Iliofemoral angiography Indications: Systolic CHF, cardiomyopathy Impressions: There is minimal two vessel coronary artery disease. The left ventricle is normal and has mildly abnormal contractility EF 45-50% Recommendations: Optimal medical therapy of patient's disease. Aggressive risk factor modification. History/Risk Factors: hx dvt renal dx hx of pe Hypertension CHF Prior PA Procedure Access obtained in the right Femoral artery by percutaneous puncture Complications: None, None Contrast: Isovue 77ml Closure Device: MynxGrip Hemodynamics: Pressures Site Systolic/ A Wave Diastolic/ V Wave End Diastolic/ Mean HR AO 105 77 91 75 AO 109 83 96 74 LV 111 6 25 76 LV 118 5 18 76 LV 114 22 45 78 AO 135 75 95 78 LV Ventriculography Ejection Method: LV Gram Ejection Fraction: 45-50% Wall Motion: MORSE Anterobasal Mild Hypokinesis Anterolateral Mild Hypokinesis Apical: Mild Hypokinesis Inferoapical Mild Hypokinesis Inferobasal Mild Hypokinesis Coronary Dominance: Right Lesion Findings/Interventions * Left Main Coronary Artery The LMCA is angiographically free of disease. * Left Anterior Descending The LAD has a proximal 15% stenosis and mid 20% stenosis with mild systolic bridging. The 1st Diagonal has luminal irregularities. * Circumflex There is a 15% stenosis in the Proximal Circumflex. * Ramus The ramus has minimal disease * Right Coronary Artery There is a 15% stenosis in the Proximal RCA. There is a 15% stenosis in the Mid RCA. Right PDA with minimal disease Visualized portion of the iliofemoral artery without significant disease with appropriate sheath placement for closure device. Updated by RT Christin(R) on 01/16/2017 2:45:14 PM Pedro Montano MD, FACC electronically signed on 01/17/2017 10:39:32 AM with status of Final
== END 2017-01-17 09:35 | disposition home or self-care (01) ==
LOC: 3BNU 16:30 → EMEROO 16:30 → SUATTDRO 19:55 → 3BNU 20:23
PROVIDERS: ADMIT Internal Medicine; ATTEND Internal Medicine

== ENCOUNTER 2018-08-31 09:20 | Inpatient (IN) ==
[2018-08-31] MEDS ORDERED: CeFAZolin Syr 2,000MG/20 ML 2,000 MG/20 ML SYRINGE IVPB ONE (09:43)
[2018-08-31] MEDS: Ringers Solution, Lactated 1,000 ML IVC SCH ×2 (10:02→14:53)
[2018-08-31] MEDS ORDERED: *HR* Midazolam HCl 2 MG/2 ML VIAL ONE (10:36)
[2018-08-31] MEDS ORDERED: *HR* Propofol 200 MG/20 ML VIAL IVP ONE ×2 (10:36→12:16)
[2018-08-31] MEDS ORDERED: *HR* FentaNYL (PF) 100 MCG/2 ML VIAL ONE ×2 (10:36→12:18)
--- NOTE | 2018-08-31 10:36 | History & Physical Report ---
Date of Encounter: 08/31/18 Time of Encounter: 10:36 24 Hour HP Update - Instructions Instructions: If the History and Physical is less than 30 days old and was completed prior to A.M. admission and or procedure and has NOT been updated on calendar day of procedure please complete this update prior to performing procedure. - Update Patient reports changes in Medical Condition: No Changes in examination, assessment, or condition: No Changes in Medication: No Preop tests/diagnostics Reviewed: Yes Surgery Remains Indicated: Yes Consent for Planned Operative Procedure(s) Verified: Yes - Pre-Operative Checklist Preoperative Checklist Indicated: No Prophylactic Antibiotic Ordered: Yes Is VTE Prophylaxis Indicated?: Yes
[2018-08-31 10:38] LABS: Activated Partial Thrombo Time 33.5 Seconds (26.0-36.0)
[2018-08-31 10:39] LABS: INR 1.1; Prothrombin Time 12.1 Seconds (9.4-12.1)
[2018-08-31] MEDS ORDERED: ROPIVACAINE HCL/PF 0.5% 30 ML VIAL ONE (10:44)
[2018-08-31] MEDS ORDERED: *HR* Promethazine 25 MG/ML VIAL IVP PRN (10:44)
[2018-08-31] MEDS ORDERED: Bupivacaine/Clonidine Syringe 1 EACH SYRINGE ONE (10:44)
[2018-08-31] MEDS ORDERED: Ondansetron 4 MG/2 ML VIAL IVP ONE (10:44)
[2018-08-31] MEDS ORDERED: *HR* OxyCODONE/APAP 5/325 TABLET PO PRN ×2 (10:44→15:14)
--- NOTE | 2018-08-31 10:45 | Anesthesia Evaluation PreOp ---
Date of Encounter: 08/31/18 Time of Encounter: 10:42 - Past History Planned Operation: L TKR Cardiac History: [place] (2007), HTN, Other (CAD:LEFT HEART CATH Iliofemoral angiography Indications: Systolic CHF, cardiomyopathy Impressions: There is minimal two vessel coronary artery disease. 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 History: Other (anixety) Other Medical History: Other (breast ca) Anesthesia History: No Prior Anesthetic Complications, Past Anesthesia (ORIF L humerus, L shoulder, back, R shoulder, colonoscopy) Alcohol Use: none Drug use: marijuana Medications and Allergies Cyclobenzaprine [Flexeril] 10 mg PO TID 12/29/17 [History] Duloxetine HCl [Cymbalta] 60 mg PO BID 12/29/17 [History] Furosemide [Lasix] 20 mg PO DAILY 12/29/17 [History] Gabapentin [Neurontin] 300 mg PO TID 12/29/17 [History] Metoprolol [Lopressor] 50 mg PO BID 12/29/17 [History] Pantoprazole Sodium [Protonix] 40 mg PO DAILY 12/29/17 [History] Topiramate [Topamax] 100 mg PO BID 12/29/17 [History] Tramadol HCl [Ultram] 50 mg PO QID PRN 12/29/17 [History] Warfarin Sodium 2.5 mg PO QTUTHSA 12/29/17 [History] Warfarin Sodium 5 mg PO QMWFSA 12/29/17 [History] Buspirone HCl [Buspar] 10 mg PO BID 06/18/18 [History] Cetirizine HCl [Zyrtec] 10 mg PO HS 06/18/18 [History] Metoclopramide HCl 5 mg PO BID 06/18/18 [History] Allergy/AdvReac Type Severity Reaction Status Date / Time ibuprofen AdvReac See Verified 08/26/18 12:06 Comments - Meds/Allergy Pre-op Review Medications Reviewed: Yes Allergies Reviewed: Yes Beta Blockers on Current Med List: Yes If Beta Blockers taken, Date/Time (Last Dose taken): 7am today Anesthesia Results - Labs Laboratory Tests 08/23/18 08/26/18 08/31/18 12:02 12:22 10:07 WBC 5.5 Hgb 11.6 Hct 37.1 Plt Count 236 PT 12.1 D INR 1.1 D APTT 33.5 Sodium 137 Potassium 3.8 Chloride 101 Carbon Dioxide 28 BUN 24 H Creatinine 0.66 - Imaging Additional studies: mpressions: Mild-moderate LV systolic dysfunction, LVEF 40%. There is global hypokinesis with regional variations. Normal right ventricular size and function. Valvular function was not assessed on this limited study. Left Ventricular Wall Motion: Rest Echo Findings The apex, apical inferior, mid inferior, basal inferior, apical anterior, mid anterior, basal anterior, apical septal, mid inferior septal, basal inferior septal, apical lateral, mid anterior lateral, basal anterior lateral, mid anterior septal, mid inferior lateral, basal anterior septal and basal inferior lateral cueva were hypokinetic. Anesthesia Exam O2 Sat Height 1.7 m Weight 88.904 kg O2 Sat by Pulse Oximetry 97 Vital Signs Temp Pulse Resp BP Pulse Ox 97.8 F 68 18 140/79 97 08/31/18 09:39 08/31/18 09:39 08/31/18 09:39 08/31/18 09:39 08/31/18 09:39 Weight: 88kg NPO (# of Hours): >8 - HEENT Pupil (Motor): Pupils equal, EOMI Mallampati: III Teeth: Poor dentition (broken upper L lateral incisor) - DATABASE REPORTING CONSULTANT LOC: Oriented DATABASE REPORTING CONSULTANT Motor: Normal RUE, Normal LUE, Normal RLE, Normal LLE, Normal Face DATABASE REPORTING CONSULTANT Sensory: Normal: RUE, LUE, RLE, LLE, Face - Pulmonary Breath Sounds: bilateral Clear Respiratory Effort: Symmetrical Anesthesia Assess/Plan ASA Score: 3 Level of consciousness: Cooperative Anesthetic Plan: General, Regional Nerve Block Regional Nerve Block Plan: Adductor canal (left), IPACK (Left) Monitoring Plan: Standard Monitors Recovery Plan: PACU
[2018-08-31] MEDS ORDERED: Dexamethasone 4 MG/ML VIAL ONE (10:47)
[2018-08-31] MEDS ORDERED: Ondansetron 4 MG/2 ML VIAL ONE (10:47)
[2018-08-31] MEDS ORDERED: Scopolamine Patch 1.5 MG PATCH.TD72 ONE (11:12)
[2018-08-31] MEDS ORDERED: Acetaminophen IV 1,000 MG/100 ML INFUS..BTL ONE (11:12)
[2018-08-31] MEDS ORDERED: Ethanol\\Acetic Acid\\Na Ace\\Ben 1,000 ML IRRIG.SOLN IR ONE (11:20)
--- NOTE | 2018-08-31 11:41 | Anesthesia Procedures ---
Date of Encounter: 08/31/18 Time of Encounter: 11:25 Procedures: Anesthesia - Nerve Block Procedure Date: 08/31/18 Time: 11:25 Allergies/Adv Reactions: Ibuprofen Pre-op Diagnosis: Left knee osteoarthritis Surgical Procedure: Left total knee arthroplasty Checklist: Correct Patient Identifier, Correct procedure, History checked Correct side: Left Blood Thinner: No Monitor Applied: EKG, BP, Pulse Oximetry Supplemental Oxygen via Nasal Cannula (L/min): 2 Sedation: Versed (mg): 2 Sedation: Fentanyl (mcg): 100 Indication: Post Op Analgesia Pre-op Neuro Deficits: No Block Type: Other (adductor canal, IPACK) Catheter placed: No Sterile Technique: Yes Ultrasound used: Yes Anatomy identified: Yes Visual spread of Local: Yes Neuro Stimulation: No Blood on Needle Aspiration: No Smooth Injection of Local: Yes Pain with Injection of Local: No Prep: Chlorhexadine Needle: 21 x 100 mm Stimuplex Local: 0.25% Bupivicaine w/Clonidine 20 mcg/cc (20ml IPACK), Ropivacaine (0.5% 30ml), Other (Decadron 8mg) Volume (cc): 50 Number of Attempts: 1 Complications: None/effective block Vitals: Vital Signs Temperature 97.8 F 08/31/18 09:39 Pulse Rate 68 08/31/18 09:39 Respiratory Rate 18 08/31/18 09:39 Blood Pressure 140/79 08/31/18 09:39 O2 Sat by Pulse Oximetry 97 08/31/18 09:39 Temperature 97.8 F 08/31/18 09:39 Pulse Rate 64 08/31/18 11:37 Respiratory Rate 16 08/31/18 11:37 Blood Pressure 136/77 08/31/18 11:37 O2 Sat by Pulse Oximetry 97 08/31/18 11:37
--- NOTE | 2018-08-31 12:47 | Orthopedic Operative Note ---
Date of procedure: 08/31/18 Pre-op diagnosis: Left knee arthritis Post-op diagnosis: same Procedure: Procedure: Left Total knee replacement Estimated blood loss: 300 cc Hardware: Metal and polyethylene replacement. Arthrex Femur: 6 Tibia: 7 PS insert: 10 Patella:36 Exam Under anesthesia: Loss of full extension 20 degrees full flexion no varus valgus instability no anterior posterior instability Procedural Notes: Grade 4 arthritic changes all 3 compartments. Operative procedure: The patient was brought to the operating room and placed on the operating room table. After general anesthesia was administered the operative knee was examined. Findings were noted in the exam under anesthesia. The operative extremity was prepped and draped in sterile surgical fashion. The patient received IV antibiotics prior to skin incision. A standard midline incision was made centered over the patella. The incision was made through the skin and subcutaneous tissue. A medial parapatellar tendon approach was performed. Care was taken to preserve tissue along the medial aspect of the patella. And to protect the patella tendon. The deep MCL was released off the medial tibia. The infra patella fat pad was excised. Knee was brought into flexion. Patient noted to have grade 4 arthritic changes all 3 compartments. The entry hole was made for the intramedullary femoral guide. The guide was seated in 6 degrees of valgus. Anterior cut was made followed by the distal cut. The ACL the PCL the medial and the lateral menisci were excised. The tibia was subluxed forward. The entry hole was made for the intramedullary tibial guide. Guide was seated to resect 2 mm off the more abnormal side. The knee was brought into flexion the distal femur was sized to 6. The femoral guide was seated, the anterior cut was made followed by the posterior condylar cut, fo llowed by the chamfer cuts. The finishing guide was seated the box cut was made and the lug holes were drilled. The tibia was sized to a 7, the tibial tray was seated and prepared with the large drill followed by the fin cutter. Trial reduction revealed full extension no varus valgus instability with the appropriate 11 PS Tamiko. The patella was everted and cut was made at the level of the insertion of the quadriceps and patella tendon. The patella was sized to 36 the guide was seated and the lug holes are drilled. Trial reduction revealed excellent patella tracking. All trial components were removed all bony surfaces were irrigated. The tibia was cemented first followed by the femur. 11 PS Tamiko was seated and the knee was brought into full extension. The patella was cemented and held in place with the patellar holding clamp. After the cement had hardened, the knee sat for 2 minutes with a antibacterial solution. The PA close the knee. The knee was then irrigated out with 2 L of pulse irrigation. The extensor mechanism was closed with #2 FiberWire suture and #2 PDS suture. The subcutaneous tissue was then irrigated and closed deep with #1 PDS suture superficially with 0 PDS suture and skin was closed with skin ricardo. The patient was then placed in a sterile dressing and a postoperative brace extubated and transferred to recovery room in stable condition. Anesthesia: GETA Surgeon: Greg Cm Was there an assistant media buyer present: No Estimated blood loss (cc): 300 Condition: stable Disposition: PACU
[2018-08-31] MEDS: *HR* HYDROmorphone (PF) 1 MG/ML SYRINGE IVP PRN ×6 (13:28→14:24)
[2018-08-31 14:20] LABS: Hematocrit 35.7 % (35.3-44.9); Hemoglobin 11.8 g/dL (11.5-15.4)
--- NOTE | 2018-08-31 14:28 | Discharge Summary ---
- NOTES TO OUTPATIENT PROVIDER Notes to Outpatient Provider: Acute blood loss anemia. Anxiety Orders not resulted at time of discharge: Pending orders 08/31/18 11:25 US anesthesia pain block [US] Stat 08/31/18 12:49 Surgical Pathology [PTH] Routine Date of Encounter: 09/02/18 Time of Encounter: 12:31 - Discharge Diagnosis (1) Status post total knee replacement, left Priority: Primary Status: Acute (2) Arthritis of knee, left Priority: Primary Status: Acute (3) Acute blood loss anemia Priority: Secondary Status: Acute (4) Anticoagulated Priority: Secondary Status: Chronic Comments: Lovenox and Coumadin - PT/INR daily (5) CAD (coronary artery disease) Priority: Secondary Status: Chronic Qualifiers: Coronary Disease-Associated Artery/Lesion type: unspecified vessel or lesion type [place] vs. transplanted heart: [place] heart Associated angina: angina presence unspecified Qualified Code(s): I25.10 - Atherosclerotic heart disease of [place] coronary artery without angina pectoris (6) HTN (hypertension) Priority: Secondary Status: Chronic Qualifiers: Hypertension type: essential hypertension Qualified Code(s): I10 - Essential (primary) hypertension (7) History of pulmonary embolus (PE) Priority: Secondary Status: Chronic (8) Obstructive sleep apnea Priority: Secondary Status: Chronic (9) Anxiety Priority: Secondary Status: Chronic (10) Depression Priority: Secondary Status: Chronic Qualifiers: Depression Type: major depressive disorder Major depression recurrence: unspecified whether recurrent Active/Remission status: remission status unspecified Qualified Code(s): F32.9 - Major depressive disorder, single episo de, unspecified (11) GERD (gastroesophageal reflux disease) Priority: Secondary Status: Chronic Qualifiers: Esophagitis presence: esophagitis presence not specified Qualified Code(s): K21.9 - Gastro-esophageal reflux disease without esophagitis - Hospital Course Hospital course: Ms. Beaulieu is a 57 year old female, POD#. 2 s/p Left TKR 08/31 - hx of DVT anxiety and depression Will need bridge back to Coumadin with Lovenox - f/up with Coumadin clinic Patient seen at bedside, without complaints. A&O x 3 Afebrile, vital signs stable. Labs reviewed. H/H - acute blood loss anemia 09/01 - Typed and crossed due to acute blood loss anemia 09/02 - One unit of blood given. Pain control: 09/01 - difficulty Home meds: Gabapentin 600mg TID, Flexeril 10mg TID Added medications: Lidoderm patch, increased to OXycodone 15mg q 4 hours by , [facility] IV Allergy to Nsaids _ due to kidney function but BMP shows no evidence of kidney issues at this time. Toradol 15mg x 3 doses added. Participating in PT. All questions and concerns addressed. Educated on use of incentive spirometer. Encouraged ambulation and proper hydration. Patient educated on post-operative restrictions and post-operative care. Assessment and plan: Continue with postoperative care Discharge plan: Home with ECF, discharge today Added Ativan .25mg for night. Coumadin clinic f/up needed. . - Time Spent with Patient Total time spent providing and/or coordinating discharge services: - Discharge Medications Prescriptions: Docusate Sodium [Colace] 100 mg PO DAILY #7 capsule LORazepam [Ativan] 0.25 mg PO HS PRN 3 Days #3 tablet PRN Reason: Insomnia Home Medications: Cyclobenzaprine [Flexeril] 10 mg PO TID 12/29/17 [History] Duloxetine HCl [Cymbalta] 60 mg PO BID 12/29/17 [History] Furosemide [Lasix] 20 mg PO DAILY 12/29/17 [History] Gabapentin [Neurontin] 300 mg PO TID 12/29/17 [History] Metoprolol [Lopressor] 50 mg PO BID 12/29/17 [History] Pantoprazole Sodium [Protonix] 40 mg PO DAILY 12/29/17 [History] Topiramate [Topamax] 100 mg PO BID 12/29/17 [History] Tramadol HCl [Ultram] 50 mg PO QID PRN 12/29/17 [History] Warfarin Sodium 5 mg PO SUMOWEFRSA@1800 12/29/17 [History] Buspirone HCl [Buspar] 10 mg PO HS 06/18/18 [History] Cetirizine HCl [Zyrtec] 10 mg PO HS 06/18/18 [History] Metoclopramide HCl 5 mg PO QID 06/18/18 [History] Acetaminophen [Extra Strength Non-Aspirin] 1,000 mg PO Q6H PRN 08/31/18 [History] Buspirone HCl [Buspar] 5 mg PO DAILY 08/31/18 [History] Enoxaparin [Lovenox] 30 mg SQ BID 08/31/18 [History] Enoxaparin [Lovenox] 30 mg SQ Q12HR 7 Days #14 syr 08/31/18 [Rx] Nystatin Cream [Mycostatin Cream] 1 appl TP BID PRN 08/31/18 [History] Nystatin POWDER [Nystop] 1 appl TP BID PRN 08/31/18 [History] OxyCODONE Immed Rel [Roxicodone 5 MG] 5 mg PO Q6HR PRN 7 Days #28 tablet 08/31/18 [Rx] Warfarin Sodium 2.5 mg PO TUTH@1800 08/31/18 [History] traZODone [TraZODone] 50 mg PO HS PRN 08/31/18 [History] Docusate Sodium [Colace] 100 mg PO DAILY #7 capsule 09/02/18 [Rx] LORazepam [Ativan] 0.25 mg PO HS PRN 3 Days #3 tablet 09/02/18 [Rx] Lidocaine Patch [Lidoderm 5% patch] 1 each TP DAILY adh..patch 09/02/18 [Rx] Allergies/Adverse Reactions: Allergy/AdvReac Type Severity Reaction Status Date / Time ibuprofen AdvReac See Verified 08/26/18 12:06 Comments Date of admission: 09/01 Primary care physician: Aparna Campo Anticipated date of discharge: 09/02/18 Labs on day of discharge: Labs from last 24 hours 08/31/18 08/31/18 13:42 10:07 Hgb 11.8 Hct 35.7 PT 12.1 D INR 1.1 D APTT 33.5 - Impressions ITS Impressions Knee X-Ray 08/31/18 00:01 IMPRESSION: Status post left knee arthroplasty without acute postoperative complication. D/ / 08/31/2018 13:49:20 Jeremiah Keating MD / bcarter Interpreting Provider: Jeremiah Keating MD - Patient Status Disposition: Transfer Inpatient Rehab Fac Condition: Good Functional capacity at discharge: uses cane/walker Overall status at discharge: patient is progressing back to baseline - Discharge Instructions Follow Up With: Aparna Campo MD [Primary Care Provider] -
--- NOTE | 2018-08-31 14:46 | Anesthesia Evaluation Post Op ---
Date of Encounter: 08/31/18 Time of Encounter: 14:45 - Vital Signs Vital Signs: Selected Entries 08/31/18 14:20 08/31/18 14:30 Temperature 97.6 F Pulse Rate 68 Respiratory Rate 16 Blood Pressure 143/76 O2 Sat by Pulse Oximetry 98 - Lungs Lungs: Clear Ascult./Percussion - Airway Airway: Non-obstructed - Cardiovascular Regular Rate - Mental Status Mental Status: Alert & Oriented, Answers Appropriately - Pain Pain Scale: 9 (Continues to state pain is a 9 even after additional medication, sleeping and eating ice chips. Unable to provide realistic assessment of her pain.) - Nausea Vomiting Nausea Vomiting: Not Present - Hydration Hydration: Ice chips - Discharge PostOp Status: Transfer Patient to floor
[2018-08-31] MEDS ORDERED: Sennosides 8.6 MG TABLET PO PRN (15:14)
[2018-08-31] MEDS ORDERED: Ondansetron 4 MG/2 ML VIAL IVP PRN (15:14)
[2018-08-31] MEDS ORDERED: Naloxone 0.4 MG/ML INJ IVP PRN (15:14)
[2018-08-31] MEDS ORDERED: Gabapentin 300 MG CAPSULE PO SCH ×2 (15:14→21:30)
[2018-08-31] MEDS ORDERED: MOM Conc 10 ML UD.LIQ PO PRN (15:14)
[2018-08-31] MEDS ORDERED: traMADol 50 MG TABLET PO PRN (15:14)
[2018-08-31] MEDS ORDERED: Ringers Solution, Lactated 1,000 ML IVC SCH (15:14)
[2018-08-31] MEDS ORDERED: Temazepam 15 MG CAPSULE PO PRN (15:14)
[2018-08-31] MEDS: traMADol 50 MG TABLET PO PRN (16:43)
[2018-08-31] MEDS: *HR* Enoxaparin 30 MG/0.3 ML SYRINGE SQ SCH (17:52)
[2018-08-31] MEDS ORDERED: *HR* Warfarin 5 MG TABLET PO ONE (18:00)
[2018-08-31] MEDS ORDERED: *HR* Enoxaparin 30 MG/0.3 ML SYRINGE SQ SCH (18:00)
[2018-08-31] MEDS: *HR* OxyCODONE Immed Rel 5 MG TABLET PO PRN ×2 (18:19→22:08)
[2018-08-31] MEDS: Topiramate 100 MG TABLET PO SCH (22:09)
[2018-08-31] MEDS: Loratadine 10 MG TABLET PO SCH ×2 (22:09→22:20)
[2018-08-31] MEDS: Gabapentin 300 MG CAPSULE PO SCH (22:15)
[2018-09-01] MEDS: traMADol 50 MG TABLET PO PRN ×3 (01:19→22:44)
[2018-09-01] MEDS: *HR* OxyCODONE Immed Rel 5 MG TABLET PO PRN (03:12)
[2018-09-01 04:12] LABS: Hematocrit 29.5 % (35.3-44.9)
[2018-09-01 04:15] LABS: Hemoglobin 9.6 g/dL (11.5-15.4)
[2018-09-01 04:23] LABS: INR 1.1; Prothrombin Time 12.9 Seconds (9.4-12.1)
[2018-09-01 04:31] LABS: BUN/Creatinine Ratio 20 (6-26); Blood Urea Nitrogen 12 mg/dL (6-20); Calcium 8.8 mg/dL (8.6-10.3); Carbon Dioxide 24 mEq/L (23-29); Chloride 104 mEq/L (98-107); Glucose 134 mg/dL (70-105); Osmolality,Calculated 280 (280-300); Potassium 4.1 mEq/L (3.5-5.1); Sodium 134 mEq/L (136-145); eGFR For Non-African Americans > 60 (> 60)
[2018-09-01] MEDS: Acetaminophen IV 1,000 MG/100 ML INFUS..BTL IVPB PRN ×2 (06:24→18:16)
[2018-09-01] MEDS: *HR* Enoxaparin 30 MG/0.3 ML SYRINGE SQ SCH ×2 (06:50→16:54)
[2018-09-01] MEDS: *HR* OxyCODONE Immed Rel 15 MG TABLET PO PRN ×4 (07:28→21:12)
--- NOTE | 2018-09-01 08:02 | Orthopedics Progress Note ---
Date of Encounter: 09/01/18 Time of Encounter: 08:02 Subjective Interval history: Patient was seen this morning increased pain no acute findings Afebrile vital signs stable. Operative extremity: Neurovascularly intact Dressing clean dry and intact Calves nontender Assessment and plan: Continue with postoperative care Objective Vital signs: Vital Signs Temp Pulse Resp BP Pulse Ox 09/01/18 07:30 98.3 F 76 18 126/62 95 09/01/18 04:11 98.1 F 72 16 100/69 96 08/31/18 23:14 97.9 F 84 17 119/79 95 08/31/18 19:23 97.9 F 81 16 111/76 94 08/31/18 17:59 97.9 F 80 105/66 97 08/31/18 16:38 97.9 F 84 105/71 97 08/31/18 16:30 97.9 F 76 18 105/71 97 08/31/18 15:51 98.4 F 75 14 114/77 96 08/31/18 15:19 98.0 F 68 16 111/76 96 08/31/18 15:00 68 16 132/78 96 08/31/18 14:50 97.1 F L 65 16 126/77 97 08/31/18 14:40 68 16 131/77 97 08/31/18 14:30 68 16 143/76 98 08/31/18 14:20 97.6 F 71 16 153/94 98 08/31/18 14:10 70 16 147/81 98 08/31/18 14:00 77 16 161/93 99 08/31/18 13:50 97.1 F L 78 16 159/79 98 08/31/18 13:40 81 16 149/95 98 08/31/18 13:30 75 16 145/88 98 08/31/18 13:20 97.6 F 78 16 156/88 99 08/31/18 11:51 65 15 134/74 97 08/31/18 11:37 64 16 136/77 97 08/31/18 11:22 65 14 152/75 98 08/31/18 09:39 97.8 F 68 18 140/79 97 Intake and Output 08/31/18 09/01/18 09/01/18 23:59 07:59 15:59 Intake Total 100 / 100 300 / 300 Output Total 300 / 300 Balance 100 / 100 0 / 0 Intake: IV Fluids 100 / 100 Ancef 2,000 MG In 0.9 % Sodium 100 / 100 Chloride 100 ML @ 200 mls/hr IVPB Q8H [facility] Rx#:[id number] Oral 300 / 300 Output: Urine 300 / 300 Other: # Voids 1 Weight 88.906 kg Patient Weight 09/01/18 23:59 Weight 88.906 kg - Labs CBC & BMP: 09/01/18 03:51 09/01/18 03:51 Labs: Abnormal lab results Hgb 9.6 g/dL (11.5-15.4) L D 09/01/18 03:51 Hct 29.5 % (35.3-44.9) L 09/01/18 03:51 PT 12.9 Seconds (9.4-12.1) H 09/01/18 03:51 Sodium 134 mEq/L (136-145) L 09/01/18 03:51 Creatinine 0.59 mg/dL (0.60-1.20) L 09/01/18 03:51 Glucose 134 mg/dL (70-105) H 09/01/18 03:51 Consult Discharge Plan - Plan Referrals: Aparna Campo MD [Primary Care Provider] -
[2018-09-01] MEDS: Gabapentin 300 MG CAPSULE PO SCH ×3 (08:39→22:39)
[2018-09-01] MEDS: Furosemide 20 MG TABLET PO SCH (08:40)
[2018-09-01] MEDS: Topiramate 100 MG TABLET PO SCH ×2 (08:40→22:39)
[2018-09-01] MEDS ORDERED: Warfarin perPT PO PRN (09:00)
[2018-09-01] MEDS ORDERED: Ketorolac 15 MG/ML VIAL IVP PRN (11:30)
--- NOTE | 2018-09-01 12:26 | Event Note ---
Date of Encounter: 09/01/18 Time of Encounter: 12:23 PCR - POD#. 1 s/p Left TKR 08/31 - hx of DVT anxiety and depression Will need bridge back to Coumadin with Lovenox - f/up with Coumadin clinic Patient seen at bedside, without complaints. A&O x 3 Afebrile, vital signs stable. Labs reviewed. H/H - stable, asymptomatic 09/01 - Typed and crossed due to acute blood loss anemia Pain control: 09/01 - difficulty Home meds: Gabapentin 600mg TID, Flexeril 10mg TID Added medications: Lidoderm patch, increased to OXycodone 15mg q 4 hours by , [facility] IV Allergy to Nsaids _ due to kidney function but BMP shows no evidence of kidney issues at this time. Toradol 15mg x 3 doses added. Participating in PT. All questions and concerns addressed. Educated on use of incentive spirometer. Encouraged ambulation and proper hydration. Patient educated on post-operative restrictions and post-operative care. Assessment and plan: Continue with postoperative care Discharge plan: Home with , discharge once pain controlled Added Ativan .25mg for night. Coumadin clinic f/up needed.
--- NOTE | 2018-09-01 17:11 | Physician Discharge Referral ---
ExtendedCare Referral Info Transfer To: ECF Provider in Charge: Provider in Charge after Transfer: PCP Institutional Level of Care: Skilled - Diagnosis (1) Status post total knee replacement, left Priority: Primary Status: Acute (2) Arthritis of knee, left Priority: Primary Status: Acute (3) Acute blood loss anemia Priority: Secondary Status: Acute (4) History of pulmonary embolus (PE) Priority: Secondary Status: Chronic (5) Anticoagulated Priority: Secondary Status: Chronic (6) HTN (hypertension) Priority: Secondary Status: Chronic (7) CAD (coronary artery disease) Priority: Secondary Status: Chronic (8) Depression Priority: Secondary Status: Chronic (9) GERD (gastroesophageal reflux disease) Priority: Secondary Status: Chronic (10) Systolic CHF Priority: Secondary Status: Chronic (11) Anxiety Priority: Secondary Status: Chronic (12) Obesity Priority: Secondary Status: Chronic Expected Duration of Placement: < 30 days Prognosis: Good Aware of Diagnosis: Patient Aware of Prognosis: Patient - Transfer Medications Prescriptions: Docusate Sodium [Colace] 100 mg PO DAILY #7 capsule LORazepam [Ativan] 0.25 mg PO HS PRN 3 Days #3 tablet PRN Reason: Insomnia Home Medications: Cyclobenzaprine [Flexeril] 10 mg PO TID 12/29/17 [History] Duloxetine HCl [Cymbalta] 60 mg PO BID 12/29/17 [History] Furosemide [Lasix] 20 mg PO DAILY 12/29/17 [History] Gabapentin [Neurontin] 300 mg PO TID 12/29/17 [History] Metoprolol [Lopressor] 50 mg PO BID 12/29/17 [History] Pantoprazole Sodium [Protonix] 40 mg PO DAILY 12/29/17 [History] Topiramate [Topamax] 100 mg PO BID 12/29/17 [History] Tramadol HCl [Ultram] 50 mg PO QID PRN 12/29/17 [History] Warfarin Sodium 5 mg PO SUMOWEFRSA@1800 12/29/17 [History] Buspirone HCl [Buspar] 10 mg PO HS 06/18/18 [History] Cetirizine HCl [Zyrtec] 10 mg PO HS 06/18/18 [History] Metoclopramide HCl 5 mg PO QID 06/18/18 [History] Acetaminophen [Extra Strength Non-Aspirin] 1,000 mg PO Q6H PRN 08/31/18 [History] Buspirone HCl [Buspar] 5 mg PO DAILY 08/31/18 [History] Enoxaparin [Lovenox] 30 mg SQ BID 08/31/18 [History] Enoxaparin [Lovenox] 30 mg SQ Q12HR 7 Days #14 syr 08/31/18 [Rx] Nystatin Cream [Mycostatin Cream] 1 appl TP BID PRN 08/31/18 [History] Nystatin POWDER [Nystop] 1 appl TP BID PRN 08/31/18 [History] OxyCODONE Immed Rel [Roxicodone 5 MG] 5 mg PO Q6HR PRN 7 Days #28 tablet 08/31/18 [Rx] Warfarin Sodium 2.5 mg PO TUTH@1800 08/31/18 [History] traZODone [TraZODone] 50 mg PO HS PRN 08/31/18 [History] Docusate Sodium [Colace] 100 mg PO DAILY #7 capsule 09/02/18 [Rx] LORazepam [Ativan] 0.25 mg PO HS PRN 3 Days #3 tablet 09/02/18 [Rx] Lidocaine Patch [Lidoderm 5% patch] 1 each TP DAILY adh..patch 09/02/18 [Rx] Allergies/Adverse Reactions: Allergy/AdvReac Type Severity Reaction Status Date / Time ibuprofen AdvReac See Verified 08/26/18 12:06 Comments - Respiratory Orders None Smoking Cessation: Smoking cessation has been advised. For more information, call the [place] Tobacco Quit Line at 5-657-FKZE-NOW. - Lab Orders Lab Orders: CBC, Other (include drug levels w/frequency) (PT/INR until Therapeutic.) - Mobility Orders Chair, Ambulate - Rehabiliation Orders Rehab Orders: ROM Exercises, Evaluation for Physical Therapy, Evaluation for Occupational Therapy - Treatments List/Other: Opsite dressing, leave intact until first post-operative visit. If dressing becomes >50% saturated, contact office, remove dressing and place appropriate dressing in its place. Do not allow for dressing to get wet. Zipline in place, plan to remove at post-operative day #14-16. Total Joint Precautions x 6 weeks Apply cold therapy wrap 3-6x/day for 20 minutes at a time. Encourage ambulation throughout the day Use Incentive spirometer 10x/hour. Elevate affected extremity above heart as tolerated. Brace: Wear knee immobilizer at night until first post-operative appt. - Diet Orders Regular CERTIFICATION: I certify that the transfer of the above named patient to an Extended Care Facility is necessary for the continuing treatment of the diagnosis listed. The above information is true and accurate reflection of patient's current condition. Confidential - Redisclosure prohibited without a patient's written consent.
[2018-09-01] MEDS ORDERED: *HR* LORazepam 0.5 MG TABLET PO PRN (17:21)
[2018-09-01] MEDS ORDERED: *HR* Warfarin 5 MG TABLET PO ONE (18:00)
[2018-09-01] MEDS: Loratadine 10 MG TABLET PO SCH (22:39)
[2018-09-02] MEDS: Acetaminophen IV 1,000 MG/100 ML INFUS..BTL IVPB PRN (01:13)
[2018-09-02] MEDS: *HR* OxyCODONE Immed Rel 15 MG TABLET PO PRN ×3 (03:56→13:30)
[2018-09-02 06:08] LABS: Hematocrit 25.5 % (35.3-44.9)
[2018-09-02] MEDS: *HR* Enoxaparin 30 MG/0.3 ML SYRINGE SQ SCH ×2 (06:13→17:01)
[2018-09-02 06:18] LABS: INR 1.2; Prothrombin Time 13.8 Seconds (9.4-12.1)
[2018-09-02 06:38] LABS: BUN/Creatinine Ratio 26 (6-26); Blood Urea Nitrogen 18 mg/dL (6-20); Calcium 8.7 mg/dL (8.6-10.3); Carbon Dioxide 24 mEq/L (23-29); Chloride 103 mEq/L (98-107); Glucose 119 mg/dL (70-105); Osmolality,Calculated 283 (280-300); Potassium 3.7 mEq/L (3.5-5.1); Sodium 135 mEq/L (136-145); eGFR For Non-African Americans > 60 (> 60)
--- NOTE | 2018-09-02 06:50 | Orthopedics Progress Note ---
Date of Encounter: 09/02/18 Time of Encounter: 06:50 Subjective Interval history: Patient was seen this morning still with pain but better this morning Afebrile vital signs stable. Operative extremity: Neurovascularly intact Dressing clean dry and intact Calves nontender Assessment and plan: Continue with postoperative care Hemoglobin 8.0 transfuse 1 unit plan for discharge today Objective Vital signs: Vital Signs Temp Pulse Resp BP Pulse Ox 09/02/18 06:46 98.2 F 86 12 118/77 95 09/01/18 22:35 98.5 F 95 16 111/74 96 09/01/18 18:10 97.9 F 92 16 104/70 96 09/01/18 15:26 98.8 F 90 16 101/69 94 09/01/18 09:57 98.5 F 83 16 123/68 95 09/01/18 07:30 98.3 F 76 18 126/62 95 Intake and Output 09/01/18 09/01/18 09/02/18 15:59 23:59 07:59 Intake Total 100 / 100 Output Total 500 / 500 Balance -400 / -400 Intake: IV Fluids 100 / 100 Ofirmev 1,000 mg/100 ml 1,000 100 / 100 mg In 100 ml @ 400 mls/hr IVPB Q6HR PRN Rx#:[id number] Output: Urine 500 / 500 Other: # Voids 1 1 Weight 88.904 kg 90.8 kg Patient Weight 09/02/18 23:59 Weight 90.8 kg - Labs CBC & BMP: 09/02/18 05:36 09/02/18 05:36 Labs: Abnormal lab results Hgb 8.0 g/dL (11.5-15.4) L D 09/02/18 05:36 Hct 25.5 % (35.3-44.9) L 09/02/18 05:36 PT 13.8 Seconds (9.4-12.1) H 09/02/18 05:36 Sodium 135 mEq/L (136-145) L 09/02/18 05:36 Glucose 119 mg/dL (70-105) H 09/02/18 05:36 Consult Discharge Plan - Plan Referrals: Aparna Campo MD [Primary Care Provider] -
[2018-09-02] MEDS: Gabapentin 300 MG CAPSULE PO SCH ×2 (08:06→17:01)
[2018-09-02] MEDS: Furosemide 20 MG TABLET PO SCH (08:06)
[2018-09-02] MEDS: Topiramate 100 MG TABLET PO SCH (08:06)
[2018-09-02] MEDS ORDERED: *HR* Warfarin 5 MG TABLET PO SCH (09:00)
[2018-09-02] MEDS ORDERED: 0.9 % Sodium Chloride 250 ML ONE (12:07)
[2018-09-02 16:07] VITALS: BP 137/85
[2018-09-02 16:21] LABS: Hematocrit 29.6 % (35.3-44.9); Hemoglobin 9.5 g/dL (11.5-15.4)
[2018-09-02] MEDS ORDERED: *HR* Warfarin 5 MG TABLET PO ONE (18:00)
== END 2018-09-02 19:05 | DRG 470 ==
LOC: SAMDAY 09:20 → 3NENU 15:47
PROVIDERS: ADMIT Orthopaedic Surgery; ATTEND Orthopaedic Surgery

== ENCOUNTER 2019-01-25 12:06 | Inpatient (IN) ==
--- NOTE | 2019-01-24 17:41 | Discharge Summary ---
<Greg Cm - Last Filed: 01/29/19 07:34> Orders not resulted at time of discharge: Pending orders 01/25/19 13:12 US anesthesia pain block [US] Routine 01/25/19 15:56 Culture,Anaerobic [RM] Routine Culture,Wound [RM] Stat 01/25/19 16:38 Surgical Pathology [PTH] Routine 01/27/19 04:12 PRBC [Red Blood Cells] [BBK] Stat Type and Screen [BBK] Stat Date of Encounter: 01/29/19 Time of Encounter: 07:34 - Discharge Diagnosis (1) Acute blood loss anemia Priority: Primary Status: Acute (2) CHF (congestive heart failure) Priority: Secondary Status: Chronic - Hospital Course Hospital course: Ms. Beaulieu is a 58 year old female status post revision left total knee. Patient with acute blood loss anemia, received 3 units of packed red blood cells prior to discharge, otherwise uneventful postoperative course received antibiotics physical therapy discharge stable condition - Time Spent with Patient Total time spent providing and/or coordinating discharge services: - Discharge Medications Prescriptions: Continue RX: Duloxetine HCl [Cymbalta] 60 mg PO BID RX: Furosemide [Lasix] 20 mg PO DAILY RX: Metoprolol [Lopressor] 50 mg PO BID RX: Pantoprazole Sodium [Protonix] 40 mg PO DAILY RX: Acetaminophen [Extra Strength Non-Aspirin] 1,000 mg PO Q6H PRN PRN Reason: Mild Pain RX: Iron Polysaccharide Complex [Pro Fe] 180 mg PO DAILY RX: Warfarin Sodium 5 mg PO MOWEFR RX: Warfarin Sodium 7.5 mg PO SUTUTHSA RX: Topiramate [Topamax] 100 mg PO BID RX: Buspirone HCl [Buspar] 5 mg PO QAM RX: Buspirone HCl [Buspar] 10 mg PO HS RX: Enoxaparin [Lovenox] 40 mg SQ Q12HR RX: Nystatin POWDER [Nystop] 1 appl TP BID PRN PRN Reason: Rash RX: Nystatin Cream [Mycostatin Cream] 1 appl TP BID PRN PRN Reason: Rash RX: HydrOXYzine 10 - 20 mg PO BID PRN PRN Reason: Anxiety RX: Triamcinolone Acetonide 1 appl TP BID PRN PRN Reason: Rash RX: Ketoconazole Shampoo [Nizoral Shampoo] 1 appl TP 3XW RX: Gabapentin [Neurontin] 600 mg PO TID 7 Days #21 tablet RX: Metoclopramide HCl 5 mg PO ACHS RX: Cetirizine HCl [Zyrtec] 10 mg PO HS Changed RX: Tramadol HCl [Ultram] 50 mg PO TID 7 Days #21 tablet Home Medications: RX: Duloxetine HCl [Cymbalta] 60 mg PO BID 12/29/17 [History] RX: Furosemide [Lasix] 20 mg PO DAILY 12/29/17 [History] RX: Metoprolol [Lopressor] 50 mg PO BID 12/29/17 [History] RX: Pantoprazole Sodium [Protonix] 40 mg PO DAILY 12/29/17 [History] RX: Cetirizine HCl [Zyrtec] 10 mg PO HS 06/18/18 [History] RX: Metoclopramide HCl 5 mg PO ACHS 06/18/18 [History] RX: Acetaminophen [Extra Strength Non-Aspirin] 1,000 mg PO Q6H PRN 08/31/18 [History] RX: Iron Polysaccharide Complex [Pro Fe] 180 mg PO DAILY 10/17/18 [History] RX: Topiramate [Topamax] 100 mg PO BID 10/17/18 [History] RX: Warfarin Sodium 5 mg PO MOWEFR 10/17/18 [History] RX: Warfarin Sodium 7.5 mg PO SUTUTHSA 10/17/18 [History] RX: Buspirone HCl [Buspar] 5 mg PO QAM 01/25/19 [History] RX: Buspirone HCl [Buspar] 10 mg PO HS 01/25/19 [History] RX: Enoxaparin [Lovenox] 40 mg SQ Q12HR 01/25/19 [History] RX: HydrOXYzine 10 - 20 mg PO BID PRN 01/25/19 [History] RX: Ketoconazole Shampoo [Nizoral Shampoo] 1 appl TP 3XW 01/25/19 [History] RX: Nystatin Cream [Mycostatin Cream] 1 appl TP BID PRN 01/25/19 [History] RX: Nystatin POWDER [Nystop] 1 appl TP BID PRN 01/25/19 [History] RX: Triamcinolone Acetonide 1 appl TP BID PRN 01/25/19 [History] RX: Gabapentin [Neurontin] 600 mg PO TID 7 Days #21 tablet 01/27/19 [Rx] RX: Tramadol HCl [Ultram] 50 mg PO TID 7 Days #21 tablet 01/27/19 [Rx] Allergies/Adverse Reactions: Allergy/AdvReac Type Severity Reaction Status Date / Time NSAIDS (Non-Steroidal Allergy See Verified 01/25/19 12:43 Anti-Inflamma Comments ibuprofen AdvReac See Verified 01/25/19 12:43 Comments Date of admission: 01/25/19 19:44 Primary care physician: Aparna Campo Consults: 01/25/19 15:29 Consult to Invasive Line Access Team [CONS] Routine Reason for Consult: limited vascular access-pt to have TKR with Dr Toi deng Line Type: Midline 01/25/19 19:47 Consult to Nutrition [CONS] Routine Comment: Consulting Provider: NUTRITION Reason for Dietary Consult: Other Other:: Proper nutrition to facilitate wound healing Consult to Occupational Therapy [CONS] Routine Comment: Evaluate, develop and implement POC Reason for Consult: post knee surgery Does patient have active BEDREST order?: No Is patient medically & hemodynamically stable?: Yes Consult to Orthopedic Navigator [CONS] [CONS] Routine Consult to Physical Therapy [CONS] Routine Comment: Evaluate, develop and impliment POC Reason for Consult: post knee surgery Does patient have active BEDREST order?: No Is patient medically & hemodynamically stable?: Yes Consult to Bean Sprout Laborer [CONS] Routine Reason for SW Consult: post op joint replacement RT Post Op Consult [CONS] Routine Labs on day of discharge: Labs from last 24 hours 01/27/19 01/27/19 01/27/19 04:12 02:56 02:56 WBC 7.1 RBC 2.35 L Hgb 6.5 L D Hct 20.7 L MCV 88.1 MCH 27.7 L MCHC 31.4 L RDW 16.7 H Plt Count 172 MPV 9.3 L Immature Gran % 0.7 Seg Neutrophils % 63.3 Lymphocytes % 25.4 Monocytes % 9.7 Eosinophils % 0.6 Basophils % 0.3 Neutrophils # 4.5 Lymphocytes # 1.8 Monocytes # 0.7 Eosinophils # 0.0 Basophils # 0.0 Sodium 138 Potassium 3.3 L Chloride 109 H Carbon Dioxide 22 L BUN 18 Creatinine 0.65 Est GFR ( Amer) > 60 Est GFR (Non-Af Amer) > 60 BUN/Creatinine Ratio 28 H Glucose 117 H Calculated Osmolality 289 Calcium 8.1 L Blood Type O NEGATIVE Antibody Screen NEGATIVE Crossmatch See Detail Preliminary micro results at discharge 01/25/19 15:56 Wound Culture - Preliminary Left Knee No growth. 01/25/19 15:56 Anaerobic Culture - Preliminary Left Knee Culture is incubating. - Impressions ITS Impressions Knee X-Ray 01/25/19 01:00 IMPRESSION: Total knee arthropasty without acute hardware complication. D/ / Vicente Verdugo MD / Vicente Verdugo MD Interpreting Provider: Vicente Verdugo MD - Patient Status Disposition: Transfer Hospital Swing Bed Condition: Good Functional capacity at discharge: uses cane/walker Overall status at discharge: patient is progressing back to baseline - Discharge Instructions Follow Up With: Anna Grover PAC [Physician Enchilada Maker] - 02/02/19 2:30 pm Additional Instructions: Discharge Instructions: Total Knee Replacement Please call [facility] ([phone]), your Primary Care Physician, or report to the Emergency Room if you have any of the following symptoms: Nausea, vomiting, fever greater that 101.5, swelling, chest pain, shortness of breath, increased pain/redness/drainage/odor for your incision site, numbness/tingling, or any other concerning symptoms. ACTIVITY:Weight-bearing as tolerated. You may progress off support (crutches or walker) as tolerated. Incentive Spirometer 10 times an hour. MEDICATIONS: Upon discharge resume your home medications. Take all the medications as prescribed. Take a stool softener if taking narcotic pain medications. Stool softeners are only effective if you drink enough fluids. Drink 6-8 glass of water or fluids a day, unless this is not allowed for another health problem. Despite using stool softeners, if you haven't had a bowel movement in 3 days, please switch to a gentle laxative. Gentle laxatives are sold over the counter. You should have a bowel movement within 24 hours, if not call the office. You will be discharged from the hospital with a prescription for pain medication. You are encouraged to decrease the use of narcotic pain medication as tolerated. Should you require a refill, please call the office. [facility] prescribes narcotic pain medication for only 4-6 weeks after surgery. If you require pain medication beyond this time period, you may be referred to your Primary Care Physician or to the Pain Clinic for further evaluation. Plan ahead for refills on pain medication as many narcotics either need to be picked up at the office or mailed. It is best to call 48-72 hours in advance of needing a prescription refill so you don't run out of medication. To help control the post-operative pain, you may take NSAIDs (Aleve,Advil, Motrin, Ibuprofen, Naprosyn) or Tylenol as prescribed on the bottle in addition to the pain medication. ANTICOAGULATION (blood thinners): Continue your Aspirin, Lovenox or Coumadin as prescribed to help prevent a blood clot in the leg or in the lungs. As long as your incision remains dry and you tolerate the NSAIDs (Aleve, Advil, Motrin, ibuprofen, naprosyn), it is OK to use the NSAIDS while you are taking your anticoagulation medication. Should your incision start to drain, stop the NSAID and contact our office. Common symptoms of blood clot in the legs include: localized pain, swelling, calf tenderness, redness or discoloration of the skin. Blood clot in the lung symptoms include: shortness of breath, rapid pulse, sweating, and chest pain that worsens with deep breathing, coughing up blood, lightheadedness, feelings of anxiety. If you experience any of these symptoms notify your physician immediately, go to the emergency room, or if having trouble breathing, call 911. WOUND CARE: Leave the dressing on for 7 to 10days. You may change the dressing if it becomes saturated greater than 50%. Do not get the dressing wet at anytime. Wash your hands with antibacterial soap, rinse and dry prior to any wound care. If you have ricardo the visiting nurse or rehab facility can remove the stapes 10-14 days after surgery and place steri-strips across the wound. Leave the steri-strips in place until they fall off on their won. You may let water from the shower run on top of the steri-strips. If you do not have a visiting nurse or rehab facility, you will need to return to the office at 10-14 days for the ricardo to be removed. If you have itching or redness around the dressing call the office. FOLLOW-UP: Please follow up with your surgeon in the orthopedic clinic in 4 weeks from the day of surgery. If you have ricardo that need to be removed, you will need to come back to the office in 10-14 days from the day of surgery. <Anna Grover - Last Filed: 01/30/19 08:01> Date of Encounter: 01/28/19 - Discharge Diagnosis (1) History of total left knee replacement Priority: Primary Status: Deleted (2) History of pulmonary embolism Priority: Secondary Status: Deleted (3) alf current use of anticoagulant Priority: Secondary Status: Chronic (4) CAD (coronary artery disease) Priority: Secondary Status: Chronic Qualifiers: Coronary Disease-Associated Artery/Lesion type: unspecified vessel or lesion type [place] vs. transplanted heart: unspecified whether [place] or transplanted heart Associated angina: angina presence unspecified Qualified Code(s): I25.10 - Atherosclerotic heart disease of [place] coronary artery without angina pectoris (5) HTN (hypertension) Priority: Secondary Status: Chronic Qualifiers: Hypertension type: unspecified Qualified Code(s): I10 - Essential (primary) hypertension (6) Anemia Priority: Secondary Status: Chronic Qualifiers: Anemia type: unspecified type Qualified Code(s): D64.9 - Anemia, unspeci fied (7) History of breast cancer Priority: Secondary Status: Chronic (8) History of CHF (congestive heart failure) Priority: Secondary Status: Chronic - Hospital Course Hospital course: Ms. Beaulieu is a 58 year old female - Time Spent with Patient Total time spent providing and/or coordinating discharge services: Primary care physician: Aparna Campo Discharging clinician: Greg Cm Anticipated date of discharge: 01/28/19 - VTE Documentation of Mechanical Device: Venous foot pump, device - Patient Status Functional capacity at discharge: uses cane/walker Overall status at discharge: patient is progressing back to baseline - Diet and Activity Activity: as per physical therapy Diet: advance to your usual diet
[~2019-01-25 12:06] MED LIST: Ropivacaine/PF 0.5% 24.62 ML, EPINEPHrine 0.25 MG, Ketorolac 15 MG, Water for inj. (ste... IR ONE
[2019-01-25] MEDS ORDERED: *HR* Propofol 200 MG/20 ML VIAL IVP ONE (12:42)
[2019-01-25] MEDS ORDERED: *HR* Midazolam HCl 2 MG/2 ML VIAL ONE ×2 (12:42→14:44)
[2019-01-25] MEDS ORDERED: *HR* FentaNYL (PF) 100 MCG/2 ML VIAL ONE ×5 (12:42→17:11)
[2019-01-25 12:51] LABS: Hematocrit 40.9 % (35.3-44.9); Hemoglobin 12.8 g/dL (11.5-15.4)
[2019-01-25] MEDS ORDERED: CeFAZolin Syr 2,000MG/20 ML 2,000 MG/20 ML SYRINGE IVPB ONE (12:56)
[2019-01-25] MEDS ORDERED: Albuterol 2.5 MG/3 ML NEBULIZER IH ONE (12:56)
[2019-01-25] MEDS ORDERED: Ringers Solution, Lactated 1,000 ML IVC SCH (13:00)
[2019-01-25] MEDS ORDERED: Famotidine 20 MG/2 ML VIAL IVP ONE (13:10)
[2019-01-25] MEDS ORDERED: Gabapentin 300 MG CAPSULE PO ONE (13:11)
[2019-01-25] MEDS ORDERED: *HR* OxyCODONE ER (12 HR) 10 MG TABLET PO ONE (13:12)
--- NOTE | 2019-01-25 13:27 | Anesthesia Evaluation PreOp ---
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 History: Denies Any Significant HX Other Medical History: Denies Any Significant HX Anesthesia History: No Prior Anesthetic Complications : No Alcohol Use: none Drug use: marijuana Medications and Allergies Duloxetine HCl [Cymbalta] 60 mg PO BID 12/29/17 [History] Furosemide [Lasix] 20 mg PO DAILY 12/29/17 [History] Metoprolol [Lopressor] 50 mg PO BID 12/29/17 [History] Pantoprazole Sodium [Protonix] 40 mg PO DAILY 12/29/17 [History] Cetirizine HCl [Zyrtec] 10 mg PO HS 06/18/18 [History] Metoclopramide HCl 5 mg PO ACHS 06/18/18 [History] Acetaminophen [Extra Strength Non-Aspirin] 1,000 mg PO Q6H PRN 08/31/18 [History] Iron Polysaccharide Complex [Pro Fe] 180 mg PO DAILY 10/17/18 [History] Topiramate [Topamax] 100 mg PO BID 10/17/18 [History] Tramadol HCl [Ultram] 50 mg PO QID PRN 10/17/18 [History] Warfarin Sodium 5 mg PO MOWEFR 10/17/18 [History] Warfarin Sodium 7.5 mg PO SUTUTHSA 10/17/18 [History] Buspirone HCl [Buspar] 5 mg PO QAM 01/25/19 [History] Buspirone HCl [Buspar] 10 mg PO HS 01/25/19 [History] Docusate Sodium [Colace] 100 mg PO BID 5 Days #10 capsule 01/25/19 [Rx] Enoxaparin [Lovenox] 40 mg SQ Q12HR 01/25/19 [History] Gabapentin [Neurontin] 600 mg PO TID 01/25/19 [History] HydrOXYzine 10 - 20 mg PO BID PRN 01/25/19 [History] Ketoconazole Shampoo [Nizoral Shampoo] 1 appl TP 3XW 01/25/19 [History] Nystatin Cream [Mycostatin Cream] 1 appl TP BID PRN 01/25/19 [History] Nystatin POWDER [Nystop] 1 appl TP BID PRN 01/25/19 [History] OxyCODONE Immed Rel [Roxicodone 5 MG] 5 mg PO Q6HR PRN 5 Days #20 tablet 01/25/19 [Rx] Triamcinolone Acetonide 1 appl TP BID PRN 01/25/19 [History] Allergy/AdvReac Type Severity Reaction Status Date / Time NSAIDS (Non-Steroidal Allergy See Verified 01/25/19 12:43 Anti-Inflamma Comments ibuprofen AdvReac See Verified 01/25/19 12:43 Comments - Meds/Allergy Pre-op Review Medications Reviewed: Yes Allergies Reviewed: Yes Beta Blockers on Current Med List: Yes (Metoprolol last night 1800) Anesthesia Results - Labs 01/25/19 12:39 Laboratory Tests 01/12/17 01/20/19 01/20/19 13:43 12:28 12:28 Hgb Hct Plt Count 372 PT 25.1 H INR 2.2 APTT 46.4 H Sodium Potassium BUN POC Creatinine 0.60 01/20/19 01/25/19 12:28 12:39 Hgb 12.8 Hct 40.9 Plt Count PT INR APTT Sodium 136 Potassium 3.8 BUN 17 POC Creatinine - Imaging EKG: report reviewed (Sinus Tach) Additional studies: ECHO EF 45%, no pulm htn Anesthesia Exam O2 Sat Height 1.7 m Height 1.7 m Height 1.7 m Weight 90.718 kg Weight 90.718 kg Weight 90.718 kg O2 Sat by Pulse Oximetry 95 Vital Signs Temp Pulse Resp BP Pulse Ox 97.5 F L 117 16 142/96 95 01/25/19 12:29 01/25/19 12:29 01/25/19 12:29 01/25/19 12:29 01/25/19 12:29 Height: 5'7 Weight: 200 lbs NPO (# of Hours): MN Pain Scale: 0 - HEENT Pupil (Motor): Pupils equal, EOMI Mallampati: II Teeth: Normal Oral Opening: Greater than 3 - SLICE PLUG CUTTER OPERATOR HELPER LOC: Oriented SLICE PLUG CUTTER OPERATOR HELPER Motor: Normal RUE, Normal LUE, Normal RLE, Normal LLE, Normal Face SLICE PLUG CUTTER OPERATOR HELPER Sensory: Normal: RUE, LUE, RLE, LLE, Face - Cardiac Rhythm: Regular Murmur: None JVD: No Carotid Bruit: No - Pulmonary Breath Sounds: bilateral Clear Respiratory Effort: Symmetrical Anesthesia Assess/Plan ASA Score: 3 (CAD NE HTN) Level of consciousness: Cooperative, Oriented Anesthetic Plan: General, Regional Nerve Block Regional Nerve Block Plan: Adductor canal Reason for No Neuroaxial/Regional Block: Patient on blood thinner Autologous Blood: No Monitoring Plan: Standard Monitors Recovery Plan: PACU (Discussed GA, not candidate for SAB, will do adductor canal block, agrees to proceed)
[2019-01-25] MEDS ORDERED: Lidocaine -MPF 2% 2 ML VIAL ONE (13:37)
--- NOTE | 2019-01-25 13:43 | History & Physical Report ---
Date of Encounter: 01/25/19 Time of Encounter: 13:43 24 Hour HP Update - Instructions Instructions: If the History and Physical is less than 30 days old and was completed prior to A.M. admission and or procedure and has NOT been updated on calendar day of procedure please complete this update prior to performing procedure. - Update Patient reports changes in Medical Condition: No Changes in examination, assessment, or condition: No Changes in Medication: No Preop tests/diagnostics Reviewed: Yes Surgery Remains Indicated: Yes Consent for Planned Operative Procedure(s) Verified: Yes - Pre-Operative Checklist Preoperative Checklist Indicated: No Prophylactic Antibiotic Ordered: Yes Is VTE Prophylaxis Indicated?: Yes
[2019-01-25] MEDS ORDERED: ROPIVACAINE HCL/PF 0.5% 30 ML VIAL ONE (14:06)
[2019-01-25] MEDS ORDERED: ROPIVACAINE/PF/NS SYRINGE INTRAART ONE (14:11)
[2019-01-25] MEDS ORDERED: *HR* Midazolam HCl 5 MG/5 ML VIAL IVP ONE (14:15)
[2019-01-25] MEDS ORDERED: Ethanol\\Acetic Acid\\Na Ace\\Ben 1,000 ML IRRIG.SOLN IR ONE (14:37)
[2019-01-25] MEDS ORDERED: *HR* Phenylephrine 10 MG/ML VIAL ONE (15:35)
[2019-01-25] MEDS ORDERED: Tranexamic Acid 1,000 MG/10 ML VIAL ONE (15:37)
[2019-01-25] MEDS ORDERED: Ondansetron 4 MG/2 ML VIAL ONE (15:57)
[2019-01-25] MEDS ORDERED: Dexamethasone 4 MG/ML VIAL ONE (15:57)
[2019-01-25] MEDS ORDERED: KETAMINE HCL 50 MG/ML SYRINGE IV ONE (16:10)
[2019-01-25] MEDS ORDERED: *HR* Metoprolol 5 MG/5 ML VIAL IVP ONE (16:22)
--- NOTE | 2019-01-25 16:36 | Orthopedic Operative Note ---
Date of procedure: 01/25/19 Pre-op diagnosis: Painful left total knee Post-op diagnosis: same Procedure: Procedure: Left revision robotic-assisted Total knee replacement Estimated blood loss: 500 cc Hardware: Metal and polyethylene replacement. Ramón Femur: 4, 16 x 100 stem Tibia: 4, 14 x 100 stem TS insert: 11 Exam Under anesthesia: Flexion contracture 95 degrees varus as calculated by the robot full flexion and no instability Procedural Notes: Extensive scar tissue severe motion loss Operative procedure: The patient was brought to the operating room and placed on the operating room table. After general anesthesia was administered the operative knee was examined. Findings were noted in the exam under anesthesia. The operative extremity was prepped and draped in sterile surgical fashion. The patient received IV antibiotics prior to skin incision. A standard midline incision was made centered over the patella. He through the old incision, The incision was made through the skin and subcutaneous tissue. A medial parapatellar tendon approach was performed. Care was taken to preserve tissue along the medial aspect of the patella. And to protect the patella tendon. Load encountered was normal appearing it was sent for culture and Gram stain. Patient had extensive scar tissue. The patella was evaluated and found to be without abnormality. Knee was brought into flexion. Steinmann pins were placed in the tibia and the femur for the tibial and femoral arrays respectively. Checkpoints were also placed in the tibia and the femur for calculation purposes. The knee including the femur and the tibial registered. Femoral cuts were made first with robotic assistance, these included the anterior cut posterior cuts chamfer cuts. Tibial cut was then performed with robotic assistance as well. Bone fragments were removed, as well as the medial and lateral meniscus. The size 4 femoral guide was seated box cut was made lug holes are drilled. The size 4 tibial tray was seated and prepared with the fin cutter. Trial reduction with the 11 TS Tamiko revealed extension of 0 degree and 4 degrees varus full flexion. No varus valgus instability. Trial reduction revealed excellent patella tracking. The tibia and the femur prepared for stem by reaming up to the appropriate size. All trial components were removed all bony surfaces were irrigated. Components were assembled on the back table. The Tibia was seated followed by the femur, The selected Tamiko size was seated and secured patella. Patient had similar findings for motion and stability. The knee was closed by the PA. The knee was then irrigated out with 2 L of pulse irrigation. The extensor mechanism was closed with #2 FiberWire suture and #2 PDS suture. The subcutaneous tissue was then irrigated and closed deep with #1 PDS suture superficially with 0 PDS suture and skin was closed with skin ricardo The patient was then placed in a sterile dressing and a postoperative brace extubated and transferred to recovery room in stable condition. Anesthesia: GETA Surgeon: Greg Cm Was there an library media assistant present: No Estimated blood loss (cc): 500 Condition: stable Disposition: PACU
[2019-01-25] MEDS ORDERED: EPHEDrine 50 MG/ML VIAL ONE (16:40)
--- NOTE | 2019-01-25 17:21 | Anesthesia Procedures ---
Date of Encounter: 01/25/19 Time of Encounter: 13:25 Procedures: Anesthesia - Nerve Block Procedure Date: 01/25/19 Time: 14:45 Pre-op Diagnosis: Painful Left TKA Surgical Procedure: Revision Left TKA Checklist: Correct Patient Identifier Correct side: Left Blood Thinner: Yes Monitor Applied: EKG, BP, Pulse Oximetry Sedation: Versed (mg): 9 Sedation: Fentanyl (mcg): 100 Indication: Post Op Analgesia Pre-op Neuro Deficits: No Block Type: Other (Adductor [facility], [facility]KEON, IPACK) Catheter placed: No Depth at skin (cm): 4 Sterile Technique: Yes Ultrasound used: Yes Anatomy identified: Yes Visual spread of Local: Yes Neuro Stimulation: No Blood on Needle Aspiration: No Smooth Injection of Local: Yes Pain with Injection of Local: No Prep: Chlorhexadine Needle: 21 x 100 mm Stimuplex Local: Ropivacaine Volume (cc): 30
[2019-01-25] MEDS ORDERED: *HR* Enoxaparin 30 MG/0.3 ML SYRINGE SQ SCH (18:00)
[2019-01-25] MEDS: *HR* HYDROmorphone (PF) 1 MG/ML SYRINGE IVP PRN ×2 (18:16→18:21)
[2019-01-25] MEDS ORDERED: Temazepam 15 MG CAPSULE PO PRN (19:47)
[2019-01-25] MEDS ORDERED: Nystatin POWDER 30 GM BOTTLE TP PRN (19:47)
[2019-01-25] MEDS ORDERED: MOM Conc 10 ML UD.LIQ PO PRN (19:47)
[2019-01-25] MEDS ORDERED: Sennosides 8.6 MG TABLET PO PRN (19:47)
[2019-01-25] MEDS ORDERED: HYDROcodone BIT/Homatropine 5 MG TABLET PO PRN (19:47)
[2019-01-25] MEDS ORDERED: Naloxone 0.4 MG/ML INJ IVP PRN (19:47)
[2019-01-25] MEDS ORDERED: TRIAMCINOLONE ACETONIDE 0.5% TP PRN (19:47)
[2019-01-25] MEDS ORDERED: *HR* Promethazine 25 MG/ML VIAL IVP PRN (19:47)
[2019-01-25] MEDS ORDERED: Ondansetron 4 MG/2 ML VIAL IVP PRN (19:47)
[2019-01-25] MEDS ORDERED: *HR* Enoxaparin 40 MG/0.4 ML SYRINGE SQ SCH (19:47)
[2019-01-25] MEDS ORDERED: *HR* OxyCODONE Immed Rel 5 MG TABLET PO PRN (19:47)
[2019-01-25] MEDS ORDERED: Nystatin Cream 15 GM TUBE TP PRN (19:47)
[2019-01-25] MEDS: Ascorbic Acid 500 MG TABLET PO SCH (20:15)
[2019-01-25] MEDS: Ringers Solution, Lactated 1,000 ML IVC SCH (20:46)
[2019-01-25] MEDS: Gabapentin 300 MG CAPSULE PO SCH ×2 (22:05→23:00)
[2019-01-25 22:31] LABS: INR 1.1; Prothrombin Time 12.5 Seconds (9.4-12.1)
[2019-01-25] MEDS: *HR* OxyCODONE Immed Rel 5 MG TABLET PO PRN (23:00)
[2019-01-25] MEDS: Topiramate 100 MG TABLET PO SCH (23:00)
[2019-01-25] MEDS: Loratadine 10 MG TABLET PO SCH (23:00)
[2019-01-25] MEDS: BUSPIRONE HCL 10 MG TABLET PO SCH (23:01)
--- NOTE | 2019-01-26 02:12 | Anesthesia Evaluation Post Op ---
Date of Encounter: 01/26/19 Time of Encounter: 18:20 - Discharge PostOp Status: Transfer Patient to floor (Patient's vital signs have been reviewed. Patient is stable postoperatively and has adequately recovered from anesthesia. Patient is determined to have stable airway patency and respiratory function including respiratory rate and oxygen saturation. Patient has a stable heart rate, blood pressure and adequate hydration. Patients mental status is acceptable. Patients temperature is appropriate. Pain and nausea are adequately controlled.)
[2019-01-26] MEDS: *HR* OxyCODONE Immed Rel 5 MG TABLET PO PRN ×5 (04:12→22:20)
[2019-01-26 04:45] LABS: Basophils % 0.1 %; Hematocrit 25.5 % (35.3-44.9); Immature Granulocytes % 0.5 % (0-4); Lymphocytes # 0.6 K/mcL (0.6-4.6); Mean Corpuscular HGB Conc 31.8 g/dL (31.6-35.5); Mean Corpuscular Hemoglobin 27.6 pg (28.0-33.3); Mean Corpuscular Volume 86.7 fL (83.0-100.0); Mean Platelet Volume 9.1 fL (9.4-12.4); Monocytes # 0.7 K/mcL (0.0-1.3); Monocytes % 6.8 %; Platelet Count 237 K/mcL (140-400); Red Blood Count 2.94 M/mcL (3.82-4.97); Red Cell Distribution Width 16.2 % (11.5-14.5); Segmented Neutrophils % 86.6 %
[2019-01-26 04:47] LABS: Hemoglobin 8.1 g/dL (11.5-15.4); Neutrophils # 8.8 K/mcL (1.6-8.9)
[2019-01-26 05:04] LABS: BUN/Creatinine Ratio 26 (6-26); Blood Urea Nitrogen 17 mg/dL (6-20); Calcium 8.1 mg/dL (8.6-10.3); Carbon Dioxide 19 mEq/L (23-29); Chloride 111 mEq/L (98-107); Glucose 164 mg/dL (70-105); Osmolality,Calculated 289 (280-300); Potassium 3.9 mEq/L (3.5-5.1); Sodium 137 mEq/L (136-145); eGFR For Non-African Americans > 60 (> 60)
[2019-01-26] MEDS: *HR* Enoxaparin 30 MG/0.3 ML SYRINGE SQ SCH ×2 (06:16→18:12)
--- NOTE | 2019-01-26 06:18 | Orthopedics Progress Note ---
Date of Encounter: 01/26/19 Time of Encounter: 06:18 Subjective Interval history: Patient was seen this morning doing well without complaints. Afebrile vital signs stable. Operative extremity: Neurovascularly intact Dressing clean dry and intact Calves nontender Assessment and plan: Continue with postoperative care Hemoglobin 8.1 Objective Vital signs: Vital Signs Temp Pulse Resp BP Pulse Ox 01/26/19 05:29 113 16 119/85 99 01/26/19 03:32 98.1 F 84 17 94/67 98 01/26/19 00:31 79 16 96/68 96 01/26/19 00:01 108 16 107/74 97 01/25/19 23:31 120 16 120/80 98 01/25/19 23:01 121 16 119/84 98 01/25/19 22:31 126 16 120/88 98 01/25/19 22:29 98.3 F 124 17 90/63 98 01/25/19 22:01 117 16 115/71 97 01/25/19 21:31 113 16 108/75 98 01/25/19 21:01 117 16 113/75 97 01/25/19 20:01 109 16 127/88 99 01/25/19 19:31 94 16 120/83 94 01/25/19 19:01 124 16 109/74 100 01/25/19 18:20 107 14 113/80 97 01/25/19 18:05 109 13 111/82 95 01/25/19 17:50 97.8 F 106 12 102/78 95 01/25/19 17:40 87 16 117/77 100 01/25/19 17:30 100 14 125/82 100 01/25/19 17:20 97.9 F 109 16 132/93 100 01/25/19 14:10 105 15 134/90 100 01/25/19 12:29 97.5 F L 117 16 142/96 95 Intake and Output 01/25/19 01/25/19 01/26/19 15:59 23:59 07:59 Intake Total 200 / 200 Output Total 500 / 500 Balance -500 / -500 200 / 200 Intake: Oral 200 / 200 Output: Estimated Blood Loss 500 / 500 Other: # Voids 1 Weight 90.718 kg 90.8 kg Patient Weight 01/26/19 23:59 Weight 90.8 kg - Labs CBC & BMP: 01/26/19 04:24 01/26/19 04:24 Labs: Abnormal lab results RBC 2.94 M/mcL (3.82-4.97) L 01/26/19 04:24 Hgb 8.1 g/dL (11.5-15.4) L D 01/26/19 04:24 Hct 25.5 % (35.3-44.9) L 01/26/19 04:24 MCH 27.6 pg (28.0-33.3) L 01/26/19 04:24 RDW 16.2 % (11.5-14.5) H 01/26/19 04:24 MPV 9.1 fL (9.4-12.4) L 01/26/19 04:24 PT 12.5 Seconds (9.4-12.1) H D 01/25/19 22:05 Chloride 111 mEq/L (98-107) H 01/26/19 04:24 Carbon Dioxide 19 mEq/L (23-29) L 01/26/19 04:24 Glucose 164 mg/dL (70-105) H 01/26/19 04:24 Calcium 8.1 mg/dL (8.6-10.3) L 01/26/19 04:24 Consult Discharge Plan - Plan Referrals: Aparna Campo MD [Primary Care Provider] -
[2019-01-26] MEDS: Gabapentin 300 MG CAPSULE PO SCH ×3 (08:21→22:19)
[2019-01-26] MEDS: Ascorbic Acid 500 MG TABLET PO SCH ×2 (08:21→16:11)
[2019-01-26] MEDS: Topiramate 100 MG TABLET PO SCH ×2 (08:22→22:20)
[2019-01-26] MEDS: Multivit/Ca/Min/Fe/FA 1 TAB TABLET PO SCH (08:22)
[2019-01-26] MEDS: Furosemide 20 MG TABLET PO SCH (08:22)
[2019-01-26] MEDS: (Iron Polysaccharide Complex [Pro Fe] 180 MG) PO SCH (08:22)
[2019-01-26] MEDS: Ringers Solution, Lactated 1,000 ML IVC SCH (11:34)
[2019-01-26] MEDS ORDERED: tiZANidine 4 MG TABLET PO PRN (16:17)
--- NOTE | 2019-01-26 17:35 | Physician Discharge Referral ---
ExtendedCare Referral Info Transfer To: [facility] Provider in Charge: Dr. Greg Cm - Diagnosis (1) prison current use of anticoagulant Priority: Secondary Status: Chronic (2) CAD (coronary artery disease) Priority: Secondary Status: Chronic (3) HTN (hypertension) Priority: Secondary Status: Chronic (4) Anemia Priority: Secondary Status: Chronic (5) History of breast cancer Priority: Secondary Status: Chronic (6) History of CHF (congestive heart failure) Priority: Secondary Status: Chronic (7) History of total left knee replacement Priority: Primary Status: Chronic (8) Status post total knee replacement, left Priority: Primary Status: Acute Expected Duration of Placement: less than 30 days Prognosis: Good Aware of Diagnosis: Patient Aware of Prognosis: Patient - Transfer Medications Prescriptions: RX: Gabapentin [Neurontin] 600 mg PO TID 7 Days #21 tablet RX: Tramadol HCl [Ultram] 50 mg PO TID 7 Days #21 tablet Home Medications: RX: Duloxetine HCl [Cymbalta] 60 mg PO BID 12/29/17 [History] RX: Furosemide [Lasix] 20 mg PO DAILY 12/29/17 [History] RX: Metoprolol [Lopressor] 50 mg PO BID 12/29/17 [History] RX: Pantoprazole Sodium [Protonix] 40 mg PO DAILY 12/29/17 [History] RX: Cetirizine HCl [Zyrtec] 10 mg PO HS 06/18/18 [History] RX: Metoclopramide HCl 5 mg PO ACHS 06/18/18 [History] RX: Acetaminophen [Extra Strength Non-Aspirin] 1,000 mg PO Q6H PRN 08/31/18 [H istory] RX: Iron Polysaccharide Complex [Pro Fe] 180 mg PO DAILY 10/17/18 [History] RX: Topiramate [Topamax] 100 mg PO BID 10/17/18 [History] RX: Warfarin Sodium 5 mg PO MOWEFR 10/17/18 [History] RX: Warfarin Sodium 7.5 mg PO SUTUTHSA 10/17/18 [History] Buspirone HCl [Buspar] 5 mg PO QAM 01/25/19 [History] Buspirone HCl [Buspar] 10 mg PO HS 01/25/19 [History] Enoxaparin [Lovenox] 40 mg SQ Q12HR 01/25/19 [History] Nystatin POWDER [Nystop] 1 appl TP BID PRN 01/25/19 [History] RX: HydrOXYzine 10 - 20 mg PO BID PRN 01/25/19 [History] RX: Ketoconazole Shampoo [Nizoral Shampoo] 1 appl TP 3XW 01/25/19 [History] RX: Nystatin Cream [Mycostatin Cream] 1 appl TP BID PRN 01/25/19 [History] RX: Triamcinolone Acetonide 1 appl TP BID PRN 01/25/19 [History] RX: Gabapentin [Neurontin] 600 mg PO TID 7 Days #21 tablet 01/27/19 [Rx] RX: Tramadol HCl [Ultram] 50 mg PO TID 7 Days #21 tablet 01/27/19 [Rx] Allergies/Adverse Reactions: Allergy/AdvReac Type Severity Reaction Status Date / Time NSAIDS (Non-Steroidal Allergy See Verified 01/25/19 12:43 Anti-Inflamma Comments ibuprofen AdvReac See Verified 01/25/19 12:43 Comments - Respiratory Orders Smoking Cessation: Smoking cessation has been advised. For more information, call the [place] Tobacco Quit Line at 3-978-CGAP-NOW. - Ancillary Orders May use pressure relief devices daily prn, May go on YASMIN w/family/respon democrat w/meds at nurse discretion PRN, May consult with Dentist, Woodwork Teacher, Chicken Cleaner PRN - Mobility Orders Chair, Ambulate - Rehabiliation Orders Rehab Potential: Fair Rehab Orders: Evaluation for Physical Therapy, Evaluation for Occupational Therapy Other: Total Knee replacement Precautions x 6 weeks Apply cold therapy wrap 3-6x/day for 20 minutes at a time. Encourage ambulation throughout the day and incentive spirometer 10x/hour. Elevate affected extremity above heart as tolerated. Brace: Wear knee immobilizer at night x 2 weeks. - Treatments Skin tear care topically daily PRN per policy List/Other: Opsite placed. Keep dressing intact until first follow up appointment. If greater than 50% saturated, notify office, remove dressing and place appropriate dressing back in place. Leave Zipline intact. Opsite dressing is water resistant, not water-proof. OK to shower, but do not get dressing wet. - Diet Orders Regular CERTIFICATION: I certify that the transfer of the above named patient to an Extended Care Facility is necessary for the continuing treatment of the diagnosis listed. The above information is true and accurate reflection of patient's current condition. Confidential - Redisclosure prohibited without a patient's written consent.
--- NOTE | 2019-01-26 17:37 | Event Note ---
Date of Encounter: 01/26/19 Time of Encounter: 12:30 Date of procedure: 01/25/19 Pre-op diagnosis: Painful left total knee Post-op diagnosis: same Procedure: Procedure: Left revision robotic-assisted Total knee replacement Patient seen at bedside. A&Ox3 Dressing and incision c/d/i No calf tenderness, erythema, or warmth. Moderate swelling noted to knee postop Neurovascularly intact b/l LE. Labwork and medications reviewed. Pain control: Adequate - c/o spasming to thigh - will see about trial muscle relaxer and lidoderm patch for medial and posterior knee --- no significant calf pain at this time. Participating in PT. All questions and concerns addressed. Educated on use of incentive spirometer, ambulation, and hydration. Patient educated on post-operative restrictions and care. Addressed: see above. D/C plan: ECF - awaiting auth. Vital Signs Temp Pulse Resp BP Pulse Ox 01/26/19 15:06 97.8 F 111 18 90/58 96 01/26/19 10:27 98.3 F 96 18 94/64 94 01/26/19 08:20 97/65 01/26/19 06:22 98.1 F 85 18 91/61 97 01/26/19 05:29 113 16 119/85 99 01/26/19 03:32 98.1 F 84 17 94/67 98 01/26/19 00:31 79 16 96/68 96 01/26/19 00:01 108 16 107/74 97 01/25/19 23:31 120 16 120/80 98 01/25/19 23:01 121 16 119/84 98 01/25/19 22:31 126 16 120/88 98 01/25/19 22:29 98.3 F 124 17 90/63 98 01/25/19 22:01 117 16 115/71 97 01/25/19 21:31 113 16 108/75 98 01/25/19 21:01 117 16 113/75 97 01/25/19 20:01 109 16 127/88 99 01/25/19 19:31 94 16 120/83 94 01/25/19 19:01 124 16 109/74 100 01/25/19 18:20 107 14 113/80 97 01/25/19 18:05 109 13 111/82 95 01/25/19 17:50 97.8 F 106 12 102/78 95 01/25/19 17:40 87 16 117/77 100 Intake and Output 01/26/19 01/26/19 01/26/19 07:59 15:59 23:59 Intake Total 300 / 300 1000 / 1000 Balance 300 / 300 1000 / 1000 Intake: IV Fluids 100 / 100 1000 / 1000 Lactated Ringers 1,000 ML @ 75 1000 / 1000 mls/hr IVC .[id number] DAVID Rx#: [id number] Ancef 2,000 MG In 0.9 % Sodium 100 / 100 Chloride 100 ML @ 200 mls/hr IVPB Q8HR DAVID Rx#:[id number] Oral 200 / 200 Other: # Voids 1 1 Weight 90.8 kg Patient Weight 01/26/19 23:59 Weight 90.8 kg Short CBC 01/26/19 Range/Units 04:24 WBC 10.2 D (4.3-11.1) K/mcL Hgb 8.1 L D (11.5-15.4) g/dL Hct 25.5 L (35.3-44.9) % Plt Count 237 (140-400) K/mcL Neutrophils # 8.8 (1.6-8.9) K/mcL BMP 01/26/19 Range/Units 04:24 Sodium 137 (136-145) mEq/L Potassium 3.9 (3.5-5.1) mEq/L Chloride 111 H (98-107) mEq/L Carbon Dioxide 19 L (23-29) mEq/L BUN 17 (6-20) mg/dL Creatinine 0.65 (0.60-1.20) mg/dL Glucose 164 H (70-105) mg/dL Calcium 8.1 L (8.6-10.3) mg/dL
[2019-01-26] MEDS: *HR* Warfarin 5 MG TABLET PO SCH (18:19)
[2019-01-26] MEDS: Acetaminophen IV 1,000 MG/100 ML INFUS..BTL IVPB SCH (18:21)
[2019-01-26] MEDS: Loratadine 10 MG TABLET PO SCH (22:20)
[2019-01-26] MEDS: BUSPIRONE HCL 10 MG TABLET PO SCH (22:20)
[2019-01-27] MEDS: Acetaminophen IV 1,000 MG/100 ML INFUS..BTL IVPB SCH ×4 (00:45→23:48)
[2019-01-27] MEDS: Ringers Solution, Lactated 1,000 ML IVC SCH ×2 (00:50→18:15)
[2019-01-27 03:06] LABS: Basophils % 0.3 %; Eosinophils % 0.6 %; Hematocrit 20.7 % (35.3-44.9); Immature Granulocytes % 0.7 % (0-4); Lymphocytes # 1.8 K/mcL (0.6-4.6); Lymphocytes % 25.4 %; Mean Corpuscular HGB Conc 31.4 g/dL (31.6-35.5); Mean Corpuscular Hemoglobin 27.7 pg (28.0-33.3); Mean Corpuscular Volume 88.1 fL (83.0-100.0); Mean Platelet Volume 9.3 fL (9.4-12.4); Monocytes # 0.7 K/mcL (0.0-1.3); Monocytes % 9.7 %; Neutrophils # 4.5 K/mcL (1.6-8.9); Platelet Count 172 K/mcL (140-400); Red Blood Count 2.35 M/mcL (3.82-4.97); Red Cell Distribution Width 16.7 % (11.5-14.5); Segmented Neutrophils % 63.3 %
[2019-01-27 03:07] LABS: Hemoglobin 6.5 g/dL (11.5-15.4)
[2019-01-27 03:26] LABS: BUN/Creatinine Ratio 28 (6-26); Blood Urea Nitrogen 18 mg/dL (6-20); Calcium 8.1 mg/dL (8.6-10.3); Carbon Dioxide 22 mEq/L (23-29); Chloride 109 mEq/L (98-107); Glucose 117 mg/dL (70-105); Osmolality,Calculated 289 (280-300); Potassium 3.3 mEq/L (3.5-5.1); Sodium 138 mEq/L (136-145); eGFR For Non-African Americans > 60 (> 60)
[2019-01-27] MEDS: *HR* Enoxaparin 30 MG/0.3 ML SYRINGE SQ SCH ×2 (04:07→17:05)
[2019-01-27] MEDS: *HR* OxyCODONE Immed Rel 5 MG TABLET PO PRN ×6 (04:13→23:48)
--- NOTE | 2019-01-27 06:28 | Orthopedics Progress Note ---
Date of Encounter: 01/27/19 Time of Encounter: 06:27 Subjective Interval history: Patient was seen this morning doing well without complaints. Afebrile vital signs stable. Operative extremity: Neurovascularly intact Dressing clean dry and intact Calves nontender Assessment and plan: Continue with postoperative care Hemoglobin 6.5 transfusing 2 units Objective Vital signs: Vital Signs Temp Pulse Resp BP Pulse Ox 01/27/19 04:49 97.8 F 100 18 95/64 99 01/26/19 23:04 98.0 F 100 18 88/56 96 01/26/19 18:56 98.1 F 100 17 95/60 97 01/26/19 15:06 97.8 F 111 18 90/58 96 01/26/19 10:27 98.3 F 96 18 94/64 94 01/26/19 08:20 97/65 Intake and Output 01/26/19 01/26/19 01/27/19 15:59 23:59 07:59 Intake Total 1000 / 1000 1000 / 1000 Balance 1000 / 1000 1000 / 1000 Intake: IV Fluids 1000 / 1000 1000 / 1000 Lactated Ringers 1,000 ML @ 75 1000 / 1000 1000 / 1000 mls/hr IVC .[id number] DAVID Rx#: [id number] Other: # Voids 1 1 1 - Labs CBC & BMP: 01/27/19 02:56 01/27/19 02:56 Labs: Abnormal lab results RBC 2.35 M/mcL (3.82-4.97) L 01/27/19 02:56 Hgb 6.5 g/dL (11.5-15.4) L D 01/27/19 02:56 Hct 20.7 % (35.3-44.9) L 01/27/19 02:56 MCH 27.7 pg (28.0-33.3) L 01/27/19 02:56 MCHC 31.4 g/dL (31.6-35.5) L 01/27/19 02:56 RDW 16.7 % (11.5-14.5) H 01/27/19 02:56 MPV 9.3 fL (9.4-12.4) L 01/27/19 02:56 PT 12.5 Seconds (9.4-12.1) H D 01/25/19 22:05 Potassium 3.3 mEq/L (3.5-5.1) L 01/27/19 02:56 Chloride 109 mEq/L (98-107) H 01/27/19 02:56 Carbon Dioxide 22 mEq/L (23-29) L 01/27/19 02:56 BUN/Creatinine Ratio 28 (6-26) H 01/27/19 02:56 Glucose 117 mg/dL (70-105) H 01/27/19 02:56 Calcium 8.1 mg/dL (8.6-10.3) L 01/27/19 02:56 Consult Discharge Plan - Plan Referrals: Aparna Campo MD [Primary Care Provider] -
[2019-01-27] MEDS ORDERED: Ketoconazole Shampoo 120 ML BOTTLE TP SCH (09:00)
[2019-01-27] MEDS: Ascorbic Acid 500 MG TABLET PO SCH ×2 (09:23→16:15)
[2019-01-27] MEDS: Furosemide 20 MG TABLET PO SCH (09:25)
[2019-01-27] MEDS: Gabapentin 300 MG CAPSULE PO SCH ×3 (09:26→21:04)
[2019-01-27] MEDS: (Iron Polysaccharide Complex [Pro Fe] 180 MG) PO SCH (09:27)
[2019-01-27] MEDS: Multivit/Ca/Min/Fe/FA 1 TAB TABLET PO SCH (09:28)
[2019-01-27] MEDS: Topiramate 100 MG TABLET PO SCH ×2 (09:28→21:04)
[2019-01-27] MEDS ORDERED: 0.9 % Sodium Chloride 250 ML ONE (11:02)
[2019-01-27 15:31] LABS: INR 1.1; Prothrombin Time 12.7 Seconds (9.4-12.1)
[2019-01-27] MEDS ORDERED: 0.9 % Sodium Chloride 500 ML ONE (17:14)
[2019-01-27] MEDS ORDERED: *HR* Warfarin 5 MG TABLET PO SCH (18:00)
[2019-01-27] MEDS: BUSPIRONE HCL 10 MG TABLET PO SCH (21:04)
[2019-01-27] MEDS: Loratadine 10 MG TABLET PO SCH (21:04)
[2019-01-27] MEDS: traMADol 50 MG TABLET PO PRN (22:18)
[2019-01-28] MEDS: *HR* OxyCODONE Immed Rel 5 MG TABLET PO PRN ×4 (04:34→17:33)
[2019-01-28] MEDS: *HR* Enoxaparin 30 MG/0.3 ML SYRINGE SQ SCH ×2 (04:34→17:33)
[2019-01-28] MEDS: Ringers Solution, Lactated 1,000 ML IVC SCH (04:36)
--- NOTE | 2019-01-28 07:13 | Orthopedics Progress Note ---
Date of Encounter: 01/28/19 Time of Encounter: 07:12 - Assessment and Plan (1) Acute blood loss anemia Current Visit: Yes Status: Acute (2) CHF (congestive heart failure) Current Visit: No Status: Chronic Qualifiers: Qualified Code(s): I50.23 - Acute on chronic systolic (congestive) heart failure Subjective Interval history: Patient was seen this morning doing well without complaints. Afebrile vital signs stable. Operative extremity: Neurovascularly intact Dressing clean dry and intact Calves nontender Assessment and plan: Continue with postoperative care Repeat labs pending Objective Vital signs: Vital Signs Temp Pulse Resp BP Pulse Ox 01/28/19 03:07 98.7 F 86 16 106/68 94 01/27/19 22:37 97.9 F 85 16 127/75 97 01/27/19 20:12 98.1 F 108 14 120/75 96 01/27/19 19:41 97 01/27/19 18:24 98.7 F 108 18 124/65 95 01/27/19 17:55 98.0 F 112 16 125/67 95 01/27/19 17:40 97.8 F 106 16 125/73 98 01/27/19 14:25 97.8 F 98 16 118/63 98 01/27/19 14:20 98.5 F 110 16 116/59 97 01/27/19 11:40 98.9 F 107 17 108/70 97 01/27/19 11:25 79.9 F L 110 16 116/69 95 01/27/19 08:00 97.9 F 112 16 109/74 98 Intake and Output 01/27/19 01/27/19 01/28/19 15:59 23:59 07:59 Intake Total 1270 / 1270 1040 / 1040 1100 / 1100 Output Total 0 / 0 0 / 0 Balance 1270 / 1270 1040 / 1040 1100 / 1100 Intake: IV Fluids 100 / 100 100 / 100 1100 / 1100 Lactated Ringers 1,000 ML @ 75 1000 / 1000 mls/hr IVC .[id number] DAVID Rx#: [id number] Ofirmev 1,000 mg/100 ml 1,000 100 / 100 100 / 100 100 / 100 mg In 100 ml @ 400 mls/hr IVPB Q8HR DAVID Rx#:[id number] Oral 820 / 820 590 / 590 0 / 0 Blood Product 350 / 350 350 / 350 Rbcs Leuko Poor As-3 Ph Unit 350 / 350 [id number] Rbcs Leuko Poor As-3 Ph Unit 350 / 350 [id number] Output: Urine 0 / 0 0 / 0 Other: Meal Breakfast Dinner Percent of Meal Consumed 100% 100% # Voids 2 1 Weight 94.8 kg Patient Weight 01/28/19 23:59 Weight 94.8 kg - Labs CBC & BMP: 01/27/19 02:56 01/27/19 02:56 Labs: Abnormal lab results RBC 2.35 M/mcL (3.82-4.97) L 01/27/19 02:56 Hgb 6.5 g/dL (11.5-15.4) L D 01/27/19 02:56 Hct 20.7 % (35.3-44.9) L 01/27/19 02:56 MCH 27.7 pg (28.0-33.3) L 01/27/19 02:56 MCHC 31.4 g/dL (31.6-35.5) L 01/27/19 02:56 RDW 16.7 % (11.5-14.5) H 01/27/19 02:56 MPV 9.3 fL (9.4-12.4) L 01/27/19 02:56 PT 12.7 Seconds (9.4-12.1) H 01/27/19 14:50 Potassium 3.3 mEq/L (3.5-5.1) L 01/27/19 02:56 Chloride 109 mEq/L (98-107) H 01/27/19 02:56 Carbon Dioxide 22 mEq/L (23-29) L 01/27/19 02:56 BUN/Creatinine Ratio 28 (6-26) H 01/27/19 02:56 Glucose 117 mg/dL (70-105) H 01/27/19 02:56 Calcium 8.1 mg/dL (8.6-10.3) L 01/27/19 02:56 Consult Discharge Plan - Plan Referrals: Aparna Campo MD [Primary Care Provider] - Prescriptions: Gabapentin [Neurontin] 600 mg PO TID 7 Days #21 tablet Tramadol HCl [Ultram] 50 mg PO TID 7 Days #21 tablet
[2019-01-28 07:26] LABS: Hematocrit 25.7 % (35.3-44.9)
[2019-01-28 07:35] LABS: Hemoglobin 8.1 g/dL (11.5-15.4)
[2019-01-28] MEDS ORDERED: Iron Polysaccharide Complex 150 MG CAPSULE PO SCH (09:00)
[2019-01-28] MEDS: Topiramate 100 MG TABLET PO SCH (09:21)
[2019-01-28] MEDS: Ascorbic Acid 500 MG TABLET PO SCH ×2 (09:22→17:33)
[2019-01-28] MEDS: Multivit/Ca/Min/Fe/FA 1 TAB TABLET PO SCH (09:22)
[2019-01-28] MEDS: Gabapentin 300 MG CAPSULE PO SCH ×2 (09:22→15:19)
[2019-01-28] MEDS: Furosemide 20 MG TABLET PO SCH (09:23)
[2019-01-28] MEDS: Acetaminophen IV 1,000 MG/100 ML INFUS..BTL IVPB SCH ×2 (09:39→17:32)
[2019-01-28] MEDS ORDERED: 0.9 % Sodium Chloride 250 ML ONE (11:57)
[2019-01-28] MEDS: traMADol 50 MG TABLET PO PRN (12:19)
[2019-01-28 17:12] LABS: Hemoglobin 9.4 g/dL (11.5-15.4)
[2019-01-28 17:20] LABS: INR 1.3; Prothrombin Time 14.3 Seconds (9.4-12.1)
[2019-01-28] MEDS: *HR* Warfarin 5 MG TABLET PO SCH (18:34)
[2019-01-28 19:29] VITALS: BP 106/63
== END 2019-01-28 20:27 | disposition other institution (70) | DRG 466 ==
LOC: SAMDAY 12:06 → 3NENU 19:44
PROVIDERS: ADMIT Orthopaedic Surgery; ATTEND Orthopaedic Surgery